=== PATIENT | female | born 1930 | race Caucasian/White ===

== ENCOUNTER → 2016-08-16 | Outpatient (CLI) | payer MEDICARE ==
[~2016-08-16] MED LIST: AMLODIPINE/VALSARTAN PO; AZOR5TAB4 PO; BUSP10TA PO; COUM1TAB17 PO; CRES5TAB PO; OMEG100011 PO; PEG1POW PO; PERCOCET PO; SENN1TAB2 PO; TRIA1CR TOP; TYLE500T78 PO; VICO5TAB16 PO; VITA100037 PO; VITA500T3 PO; WARF-18 PO
[2016-08-16 12:09] LABS: MEAN CORPUSCULAR HEMOGLOBIN 28.3 pg (27.0-33.0); MEAN CORPUSCULAR HGB CONC 32.8 g/dl (32.0-36.5); MEAN CORPUSCULAR VOLUME 86.3 fl (80.0-96.0); RED CELL DISTRIBUTION WIDTH 13.3 % (11.5-14.5); WHITE BLOOD COUNT 6.3 K/mm3 (4.0-10.0)
[2016-08-16 12:22] LABS: INR 1.04
[2016-08-16 12:32] LABS: ALBUMIN/GLOBULIN RATIO 1.43 (1.00-1.93); ALKALINE PHOSPHATASE 89 U/L (45-117); ALT/SGPT 19 U/L (12-78); ANION GAP 8 MEQ/L (8-16); AST/SGOT 16 U/L (15-37); BILIRUBIN,TOTAL 0.4 MG/DL (0.2-1.0); BLOOD UREA NITROGEN 19 MG/DL (7-18); CALCIUM LEVEL 9.1 MG/DL (8.8-10.2); CARBON DIOXIDE LEVEL 27 MEQ/L (21-32); CHLORIDE LEVEL 106 MEQ/L (98-107); CREATININE FOR GFR 0.78 MG/DL (0.55-1.02); GLOMERULAR FILTRATION RATE > 60.0 (>32); GLUCOSE, FASTING 88 MG/DL (83-110); SODIUM LEVEL 141 MEQ/L (136-145); TOTAL PROTEIN 6.8 GM/DL (6.4-8.2)
--- NOTE | 2016-08-16 16:54 | REP ---
CHEST, TWO VIEWS: Two views of the chest are performed and compared to prior study of 03/31/2016. I see no acute infiltrate. Lung richards are unchanged. There is mild cardiomegaly. The mediastinal silhouette is unchanged. There are degenerative changes of the spine. IMPRESSION: Stable exam, no acute pulmonary disease. Signed by David Humphrey MD 08/17/2016 05:10 P
--- NOTE | 2016-08-18 16:44 | ECGEPIP ---
Stationary ECG Study [facility] Test Date: 2016-08-16 Pat Name: MEREDITH OLIVARES Department: Room: - Gender: F Change Coordinator: : [id number] Requested By: Flaco Liu Order Number: [id number] Reading MD: Jose Aquino Measurements Intervals [place] Rate: 60 P: 69 ID: [id number] QRS: 46 QRSD: 103 T: 51 QT: 426 QTc: 429 Interpretive Statements SINUS RHYTHM NONSPECIFIC ST & T-WAVE ABNORMALITY NO CHANGE FROM 03/31/16 Electronically Signed On 08-18-2016 16:43:59 EST by Jose Aquino
== END ==
LOC: M ADMPAT 10:16
PROVIDERS: ATTEND Orthopaedic Surgery
DX: Z01.818 Encounter for other preprocedural examination (principal); M16.11 Unilateral primary osteoarthritis, right hip; Z79.899 Other long term (current) drug therapy; E78.00 Pure hypercholesterolemia, unspecified; I10 Essential (primary) hypertension

== ENCOUNTER 2016-08-30 05:54 | Inpatient (IN) | payer MEDICARE ==
[2016-08-16 11:24] VITALS: BP 180/88
--- NOTE | 2016-08-25 16:43 | HPE ---
DATE OF SCHEDULED ADMISSION: 08/30/2016 CHIEF COMPLAINT: Right hip pain. HISTORY OF PRESENT ILLNESS: This is a pleasant 86-year-old female with progressively worsening right hip pain and stiffness. She has failed to improve with conservative treatment. She has elected for surgery for her continued symptoms. She has pain with weightbearing activities and her activities of daily living. X-rays of her hip are notable for advanced osteoarthritis of the right hip joint. She has consented for a right total hip arthroplasty by Dr. Flaco Liu. Medical optimization was performed by Dr. Mock. ALLERGIES: No known drug allergies. CURRENT MEDICATIONS: - amlodipine/valsartan 5/160 mg a day - buspirone HCl 10 mg once a day - Crestor 5 mg Monday and Monday only - Vicodin 5/300 as needed - vitamin D 2000 units a day - vitamin B12 1000 mcg a day PAST MEDICAL HISTORY: Includes high blood pressure, high cholesterol and anxiety and depression. PAST SURGICAL HISTORY: Includes bunionectomy, left knee replacement, left hip replacement and tubal ligation. 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 FAMILY HISTORY: Noncontributory. REVIEW OF SYSTEMS: This patient denies chest pain, heart palpitations, cough, wheezing, difficulty breathing and shortness of breath. She denies abdominal pain, nausea, vomiting, diarrhea or constipation. She denies recent upper respiratory infection or urinary tract infection symptoms. She does complain of persistent pain in her right hip and pain with weightbearing activities in her right hip. PHYSICAL EXAMINATION: General: She is a well nourished, well developed, in no acute distress, adult female. She ambulates with a significant limp, favoring her right lower extremity. She uses a walker. Vital Signs: She is 4 feet 11, weighs 152 pounds with a temperature of 98.3, blood pressure 141/73, pulse of 69, respirations of 16. Neck was supple without adenopathy or jugular venous distension. There were no carotid bruits appreciated upon auscultation. Lungs were clear to auscultation without rales or wheeze throughout. Heart: Regular rate and rhythm. Abdomen: Bowel sounds were present. Extremities: Examination of the hip revealed intact skin. She had decreased range of motion secondary to pain and stiffness. Otherwise the limb was neurovascularly intact. LABORATORY DATA: Chest x-ray Showed no acute cardiopulmonary disease processes. EKG showed sinus rhythm at 60 beats per minute. UA had a hazy appearance, 1+ leukocyte esterase, 25 white blood cells, 4 red blood cells and 1+ bacteria, otherwise within normal limits with a specific gravity of 1.013. Urine culture showed no growth. Nasal and sinus culture showed normal rian. Pro-time 13.7, INR 1.04, glucose 88, BUN 19, creatinine 0.78. Sodium 141, potassium 4.0. CBC was within normal limits. Sedimentation rate was 6. IMPRESSION: Symptomatic osteoarthritis of the right hip joint. PLAN: Consented for a right total hip arthroplasty by Dr. Flaco Liu.
[2016-08-30] VITALS (7 sets, daily range): BP systolic 120–143; BP diastolic 58–73
[~2016-08-30] VITALS: Ht 157.5 cm; Wt 69.8 kg
[2016-08-30] MEDS: LR 1,000 ML IV SCH ×2 (06:00→06:44)
[2016-08-30] MEDS ORDERED: COUM1TAB17 PO (06:48)
[2016-08-30] MEDS ORDERED: BUPIVACAINE HCL 0.5% 10 ML VIAL As Ordered ONE (07:10)
[2016-08-30] MEDS ORDERED: BUPIVACAINE HCL 0.25% 30 ML VIAL As Ordered ONE (07:10)
[2016-08-30] MEDS ORDERED: TRANEXAMIC ACID 100 MG/ML 10ML VIAL As Ordered ONE (07:10)
[2016-08-30] MEDS ORDERED: ceFAZolin 1GM INJ (J0690) As Ordered ONE (07:10)
[2016-08-30] MEDS ORDERED: EPINEPHrine INJ 1 MG/ML 1ML VIAL/AMP As Ordered ONE ×2 (07:10→07:40)
[2016-08-30] MEDS ORDERED: BUPIVACAINE HCL 0.25% 10 ML VIAL As Ordered ONE (07:40)
[2016-08-30] MEDS ORDERED: fentaNYL 100 MCG/2 ML INJECTION (J3010) As Ordered ONE ×2 (07:43→10:27)
[2016-08-30] MEDS ORDERED: BUPIVACAINE HCL 0.25% 30 ML VIAL XX ONE (08:13)
[2016-08-30] MEDS ORDERED: fentaNYL 100 MCG/2 ML INJECTION (J3010) XX ONE (08:13)
[2016-08-30] MEDS ORDERED: TRANEXAMIC ACID 100 MG/ML 10ML VIAL XX ONE (08:13)
[2016-08-30] MEDS ORDERED: EPINEPHrine INJ 1 MG/ML 1ML VIAL/AMP XX ONE (08:13)
[2016-08-30] MEDS ORDERED: ceFAZolin 1GM INJ (J0690) IR ONE (08:13)
[2016-08-30] MEDS ORDERED: ONDANSETRON 4MG/2ML VIAL (J2405) IV PRN ×2 (09:45)
[2016-08-30] MEDS ORDERED: LR 1,000 ML IV SCH (09:45)
[2016-08-30] MEDS ORDERED: EPIDURAL/PCA KEYS XX PRN (09:45)
[2016-08-30] MEDS ORDERED: MORPHINE PCA 1MG/ML 100ML CADD IV PRN (09:45)
[2016-08-30] MEDS ORDERED: diphenhydrAMINE INJ 50MG/ML VIAL (J1200) IV PRN (09:45)
[2016-08-30] MEDS ORDERED: NALBUPHINE HCL 10 MG/ML AMP (J2300) IV PRN (09:45)
[2016-08-30] MEDS ORDERED: NALOXONE INJ 0.4 MG/1 ML VIAL (J2310) IV PRN (09:45)
--- NOTE | 2016-08-30 09:51 | RO ---
DATE OF PROCEDURE: 08/30/2016 PREOPERATIVE DIAGNOSIS: Right hip osteoarthritis. POSTOPERATIVE DIAGNOSIS: Right hip osteoarthritis. OPERATION PERFORMED: Right total hip replacement. SURGEON: Dr. Flaco Liu. BULKHEAD CARPENTER: ILTA Salmeron. HISTORY: An 86-year-old who had her other hip done last summer. She had good relief of pain and tolerated surgery well. She wanted go ahead and get the right hip done. FINDINGS AT SURGERY: Marked synovitis in the hip. Significant osteoarthritis. We put in a 56 cup, a 36 head neck combination +5, cemented [place] stem. Blood loss around 150 mL. There were no intraoperative complications. At the conclusion, we had good range of motion, good stability. Mr. Montemayor assisted by manipulating the leg and retracting vital structures to expedite the procedure. PROCEDURE: After a spinal anesthetic, a Medina catheter placed, IV antibiotics were administered and the patient turned right side up in the [place]. She was padded and positioned appropriately then prepped and draped. The leg identified as was the procedure. Then an anterolateral approach to the hip. Tensor was split in line with its fibers. The abductors reflected anteriorly. Marked synovitis was encountered. The hip was dislocated. We reamed the distal canal to [place] #7. The neck was divided and the acetabulum was exposed. I could not see the cotyloid fossa as she was significantly lateralized. I started reaming with a 43 and went up to a 55. At that point, we had fairly good bleeding bone. We had good circumferential lamp cleaner of the greater reamers. The bleeders were coagulated. The area thoroughly irrigated and the permanent cup malleted into place. The apex hole eliminator installed and the polyethylene installed. Then broaches were utilized up to a #5. A reduction maneuver was accomplished with a +5 36. Some anterior bone from the acetabulum anterior superior was removed with a [place]ell so there would not be any impingement. The area was thoroughly inspected to make sure no other bleeders were encountered. Following this, the stem was removed. The broaches discontinued. The distal cement restrictor was measured for a #5 and it was installed. The femur was thoroughly irrigated and then packed with a epinephrine soaked lap pad while Mr. Montemayor was excused to the back table to mix methacrylate under vacuum. Following this, the epinephrine soaked sponge was removed from the femur and cement was injected retrograde and pressurized. After another minute, the stem was slowly inserted until it bottomed out. Excess cement was removed. The stem was held for 11 minutes until the cement cured. The Saenz taper was then engaged and the hip reduced without difficulty. The wound was thoroughly irrigated. The capsule closed. TXA was instilled on the wound for postop hemostasis. The abductors were repaired back to the trochanter with several stitches going through bone for secure fixation. The PainBuster catheter had been threaded in under the tensor. The tensor closed with heavy PDS, subcutaneous closed with #2-0 PDS and antony for skin. 10 mL for the PainBuster to prime it and that was connected, a dry dressing applied. The patient transferred to recovery room breathing spontaneously having tolerated the procedure well.
[2016-08-30] MEDS ORDERED: MORPHINE PCA 1MG/ML 100ML CADD As Ordered ONE (09:54)
[2016-08-30] MEDS ORDERED: FLEET ENEMA PR PRN (10:00)
[2016-08-30] MEDS ORDERED: PATIENT IS CURRENTLY ON AN ON-Q PAIN BUSTER PAIN RELIEF SYSTEM XX SCH (10:00)
[2016-08-30] MEDS: fentaNYL 100 MCG/2 ML INJECTION (J3010) IV PRN ×4 (10:14→10:29)
[2016-08-30] MEDS: D5W/0.45% SODIUM CHLORIDE 1,000 ML IV SCH ×2 (10:22→21:43)
[2016-08-30] MEDS ORDERED: PROPOFOL 200 MG/20 ML VIAL As Ordered ONE (10:28)
[2016-08-30] MEDS ORDERED: LIDOCAINE 2% INJ 100 MG/5 ML SDV (FOR ANES.) As Ordered ONE (10:28)
[2016-08-30] MEDS ORDERED: PHENYLEPHRINE INJ 10MG/ML VIAL (J2370) As Ordered ONE (10:28)
[2016-08-30] MEDS ORDERED: PHENYLephrine HCL 500 MCG/5 ML (100MCG/ML) SYRINGE (J2370) As Ordered ONE (10:28)
[2016-08-30] MEDS ORDERED: ONDANSETRON 4MG/2ML VIAL (J2405) As Ordered ONE (10:28)
[2016-08-30] MEDS ORDERED: ePHEDrine SULFATE 25 MG/5 ML(5MG/ML) SYRINGE As Ordered ONE (10:28)
[2016-08-30] MEDS ORDERED: MORPHINE 10 MG/ML 1ML VIAL As Ordered ONE (10:50)
[2016-08-30] MEDS ORDERED: MORPHINE 2 MG/ML 1ML SYRINGE IV PRN (11:15)
[2016-08-30] MEDS ORDERED: HYDROcodone/APAP LIQUID 7.5-325MG 15ML UDC (LORTAB ELIXIR) As Ordered ONE (11:27)
[2016-08-30] MEDS: NORCO, ANEXSIA 5/325MG TABLET (HYDROcodone/ACETAMINOPHEN) PO PRN ×2 (11:30→11:50)
[2016-08-30] MEDS: ceFAZolin SOD 1 GM in D5W MINI-BAG PLUS 50 ML IV SCH ×2 (14:35→21:42)
[2016-08-30 14:48] LABS: BASO % 0.2 % (0.0-1.0); EOS % 0.4 % (0.0-3.0); LARGE UNSTAINED CELL # 0.1 K/mm3 (0.0-0.4); LYMPH # 0.7 K/mm3 (1.5-4.5); LYMPH % 6.3 % (24.0-44.0); MEAN CORPUSCULAR HEMOGLOBIN 28.6 pg (27.0-33.0); MEAN CORPUSCULAR HGB CONC 33.3 g/dl (32.0-36.5); MONO # 0.5 K/mm3 (0.0-0.8); MONO % 4.4 % (0.0-5.0); NEUTROPHILS # 9.8 K/mm3 (1.8-7.7); NEUTROPHILS % 87.6 % (36.0-66.0); PLATELET COUNT, AUTOMATED 205 k/mm3 (150-450); RED CELL DISTRIBUTION WIDTH 13.2 % (11.5-14.5); WHITE BLOOD COUNT 11.2 K/mm3 (4.0-10.0)
[2016-08-30 15:04] LABS: ALBUMIN 3.5 GM/DL (3.2-5.2); ALBUMIN/GLOBULIN RATIO 1.67 (1.00-1.93); ALKALINE PHOSPHATASE 74 U/L (45-117); ALT/SGPT 16 U/L (12-78); ANION GAP 9 MEQ/L (8-16); AST/SGOT 17 U/L (15-37); BILIRUBIN,TOTAL 0.4 MG/DL (0.2-1.0); BLOOD UREA NITROGEN 15 MG/DL (7-18); CALCIUM LEVEL 8.2 MG/DL (8.8-10.2); CARBON DIOXIDE LEVEL 28 MEQ/L (21-32); CHLORIDE LEVEL 105 MEQ/L (98-107); CREATININE FOR GFR 0.66 MG/DL (0.55-1.02); GLOMERULAR FILTRATION RATE > 60.0 (>32); GLUCOSE, FASTING 142 MG/DL (83-110); SODIUM LEVEL 142 MEQ/L (136-145); TOTAL PROTEIN 5.6 GM/DL (6.4-8.2)
--- NOTE | 2016-08-30 15:32 | CR.PDOC ---
[facility] Consultation Consultation DATE OF CONSULTATION: 08/30/16 - 200PM PRIMARY CARE PHYSICIAN: [Dr. Mock] REFERRING PROVIDER: [Dr. Liu] ATTENDING PHYSICIAN: [Dr. Liu] REASON FOR CONSULTATION/CHIEF COMPLAINT: [Medical management] HISTORY OF PRESENT ILLNESS: Patient is an 86 year old female with a PMHx of HTN, DLP, depression, anxiety and osteoarthritis who [facility] for scheduled right hip arthroplasty. Patient was seen by her primary car physician for continuous pain. Imaging revealed that she had advanced osteoarthritis and was unable to be controlled by medical management. She was medically optimized and scheduled for total right hip replacement. She was taken to [facility] on 08/30/16 and had a total right hip replacement. She had no other complaints. ALLERGIES: [NKDA] HOME MEDICATIONS: Please see below. PAST MEDICAL HISTORY: 1. HTN 2. DLP 3. Depression 4. Anxiety 5. Osteoarthritis PAST SURGICAL HISTORY: 1. Bilateral bunionectomy 2. Left knee replacement - 2009 3. Left hip replacement - 2015 4. Tubal ligation ... >30 years ago FAMILY HISTORY: Non-contributory SOCIAL HISTORY: Ry smoking or illicit drug use; Social drinker in the past No recent travel or sick contacts courtesy car driver for 27 years REVIEW OF SYSTEMS: 12 point review of system negative - otherwise stated in HPI PHYSICAL EXAMINATION: VITAL SIGNS: Please see below. GENERAL APPEARANCE: Lying in bed, no acute distress, comfortable, AAOx3 HEENT: NC, AT RESPIRATORY: Fair air entry b/l, -w/r/r CARDIOVASCULAR: RRR, +S1S2 ABDOMEN: Soft, ND, NT, +BSx4 EXTREMITIES: No edema, no calf tenderness NEUROLOGICAL: No focal weakness, No sensory deficit PSYCHIATRIC: AAOx3, No suicidal / homicidal ideation LABORATORY DATA: Please see below. ASSESSMENT/PLAN: 1. Right hip pain - s/p Total right hip replacement (POD #0) - no complications reported - pain control by surgical team - Managed by surgical team (Dr. Liu) 2. HTN - BP well controlled - Will restart home medications with holding parameters 3. DLP - will restart Crestor 4. Depression / Anxiety - c/w Buspirone 5. DVT prophylaxis - on anticoagulation by surgical team Vital Signs/I&O Vital Signs Date Time Temp Pulse Resp B/P Pulse Ox O2 Delivery O2 Flow Rate FiO2 08/30/16 12:30 Nasal Cannula 2.0 08/30/16 12:13 74 16 98 08/30/16 12:11 117/58 08/30/16 11:50 96.8 Laboratory Data Labs 24H Laboratory Tests 2 08/30/16 14:28: Blood Urea Nitrogen 15, Creatinine 0.66, Sodium Level 142, Potassium Level 4.0, Chloride Level 105, Carbon Dioxide Level 28, Calcium Level 8.2L, Aspartate Amino Transf (AST/SGOT) 17, Alanine Aminotransferase (ALT/SGPT) 16, Alkaline Phosphatase 74, Total Bilirubin 0.4, Total Protein 5.6L, Albumin 3.5, Albumin/ Globulin Ratio 1.67, Anion Gap 9, Glomerular Filtration Rate > 60.0, Magnesium Level 2.0 CBC/BMP Laboratory Tests 08/30/16 14:28 Calcium Level 8.2 L, Aspartate Amino Transf (AST/SGOT) 17, Alanine Aminotransferase (ALT/SGPT) 16, Alkaline Phosphatase 74, Total Bilirubin 0.4, Total Protein 5.6 L, Albumin 3.5 Allergies Coded Allergies: Codeine (Unverified Allergy, Unknown, HALLUCINATIONS, 01/01/15) Home Medications Scheduled ([Amlodipine/Valsartan]) 5-160 MG PO DAILY (Reported) Buspirone HCl (Buspirone HCl) 10 Mg Tab 10 MG PO DAILY (Reported) Cyanocobalamin (Vitamin B-12) 500 Mcg Tab 1,000 MCG PO DAILY (Reported) Rosuvastatin Calcium (Crestor) 5 Mg Tab 5 MG PO 2XW (Reported) TO BE TAKEN ON MONDAY AND MONDAY Vitamin D (Vitamin D) 1,000 Unit Cap 2,000 UNIT PO DAILY (Reported) Warfarin Sod (Coumadin) 5 Mg Tab 5 MG PO 1T (Reported) BETY JHA MD Aug 30, 2016 15:32
[2016-08-30] MEDS ORDERED: WARFARIN SOD 5 MG TAB PO ONE (17:00)
[2016-08-30] MEDS: VALSARTAN 80 MG TAB (DIOVAN) PO SCH (17:11)
[2016-08-30] MEDS: CYANOCOBALAMIN 500 MCG TAB PO SCH (17:11)
[2016-08-30] MEDS: busPIRone 10 MG TAB PO SCH (17:11)
[2016-08-30] MEDS: amLODIPine 5 MG TAB PO SCH (17:12)
[2016-08-30] MEDS: VITAMIN D 1,000 INTERNATIONAL UNITS TABLET PO SCH (17:12)
[2016-08-30 20:49] LABS: MEAN CORPUSCULAR HEMOGLOBIN 28.4 pg (27.0-33.0); MEAN CORPUSCULAR VOLUME 88.5 fl (80.0-96.0); RED CELL DISTRIBUTION WIDTH 14.3 % (11.5-14.5); WHITE BLOOD COUNT 8.7 K/mm3 (4.0-10.0)
[2016-08-30 21:19] LABS: CALCIUM LEVEL 8.1 MG/DL (8.8-10.2); CREATININE FOR GFR 0.96 MG/DL (0.55-1.02); GLOMERULAR FILTRATION RATE 58.4 (>32); POTASSIUM SERUM 4.5 MEQ/L (3.5-5.1)
[2016-08-31 02:00] VITALS: BP 139/70
[2016-08-31 02:12] LABS: MEAN CORPUSCULAR HEMOGLOBIN 27.4 pg (27.0-33.0); MEAN CORPUSCULAR HGB CONC 31.1 g/dl (32.0-36.5); MEAN CORPUSCULAR VOLUME 88.1 fl (80.0-96.0); RED CELL DISTRIBUTION WIDTH 14.1 % (11.5-14.5); WHITE BLOOD COUNT 8.9 K/mm3 (4.0-10.0)
[2016-08-31 02:30] LABS: ANION GAP 8 MEQ/L (8-16); BLOOD UREA NITROGEN 15 MG/DL (7-18); CALCIUM LEVEL 8.1 MG/DL (8.8-10.2); CARBON DIOXIDE LEVEL 27 MEQ/L (21-32); CHLORIDE LEVEL 101 MEQ/L (98-107); CREATININE FOR GFR 0.83 MG/DL (0.55-1.02); GLOMERULAR FILTRATION RATE > 60.0 (>32); GLUCOSE, FASTING 139 MG/DL (83-110); SODIUM LEVEL 136 MEQ/L (136-145)
[2016-08-31 06:00] VITALS: BP 180/80
[2016-08-31] MEDS ORDERED: traMADol 50 MG TAB PO PRN ×2 (06:45)
[2016-08-31] MEDS ORDERED: ONDANSETRON 4 MG TAB (S0181) PO PRN (06:45)
[2016-08-31 07:06] LABS: MEAN CORPUSCULAR HEMOGLOBIN 28.1 pg (27.0-33.0); MEAN CORPUSCULAR HGB CONC 32.4 g/dl (32.0-36.5); MEAN CORPUSCULAR VOLUME 86.8 fl (80.0-96.0); WHITE BLOOD COUNT 9.5 K/mm3 (4.0-10.0)
[2016-08-31 07:15] LABS: INR 1.86
[2016-08-31 07:45] LABS: ANION GAP 10 MEQ/L (8-16); BLOOD UREA NITROGEN 13 MG/DL (7-18); CALCIUM LEVEL 8.4 MG/DL (8.8-10.2); CARBON DIOXIDE LEVEL 27 MEQ/L (21-32); CHLORIDE LEVEL 101 MEQ/L (98-107); CREATININE FOR GFR 0.73 MG/DL (0.55-1.02); GLOMERULAR FILTRATION RATE > 60.0 (>32); GLUCOSE, FASTING 142 MG/DL (83-110); POTASSIUM SERUM 4.2 MEQ/L (3.5-5.1); SODIUM LEVEL 138 MEQ/L (136-145)
[2016-08-31] MEDS ORDERED: SENOKOT S TAB PO SCH (09:00)
[2016-08-31] MEDS ORDERED: MOM 30ML SUSPENSION UDC PO SCH (09:00)
[2016-08-31] MEDS ORDERED: MIRALAX *UNIT DOSE* 17GM PACKET PO SCH (09:00)
[2016-08-31] MEDS: busPIRone 10 MG TAB PO SCH (09:07)
[2016-08-31 09:08] VITALS: BP 180/80
[2016-08-31] MEDS: ACETAMINOPHEN TAB 650MG DOSE (2X325MG) PO PRN ×2 (09:08→12:52)
[2016-08-31] MEDS: VITAMIN D 1,000 INTERNATIONAL UNITS TABLET PO SCH (09:08)
[2016-08-31] MEDS: CYANOCOBALAMIN 500 MCG TAB PO SCH (09:08)
[2016-08-31] MEDS: VALSARTAN 80 MG TAB (DIOVAN) PO SCH (09:08)
[2016-08-31] MEDS: amLODIPine 5 MG TAB PO SCH (09:08)
--- NOTE | 2016-08-31 10:22 | IPNPDOC ---
Text Note Date of Service The patient was seen on 08/31/16 at 10:16. NOTE Subjective: Patient is an 86 year old female with a PMHx of HTN, DLP, depression, anxiety and osteoarthritis who presented to [facility] for scheduled right hip arthroplasty. She had received her elective total right hip replacemetn 08/30/[address] Liu. Patient has been seen and examined at the bedside. Has no new complaints today. She has not passed gas or had a bowel movement at this time. She is tolerating her meal and denies abdominal pain, nausea or vomiting. Objective: Vitals (See below) General: Lying in bed, no acute distress, comfortable, AAOx3 HEENT: NC, AT CVS: RRR, +S1S2 Lungs: Fair air entry b/l, -w/r/r Abdomen: Soft, ND, NT, +BSx4 Extremities: -Edema, -calf tenderness Assessment and plan: 1. Right hip pain - s/p Total right hip replacement (POD #1) - minimal pain noted at the right hip - no complications reported - pain control by surgical team - physical therapy for evaluation; outpatient rehabilitation setup - case management working on it - Managed by surgical team (Dr. Liu) 2. HTN - BP poorly controlled this morning - will re-evaluate after starting am medications - c/w amlodipine and losartan with holding parameters 3. Normocytic anemia - Hg slightly lower than baseline - will monitor for now 4. Hyperglycemia - Will check HbA1c 5. s/p Leukocytosis - likely reactive 6. DLP - c/w Crestor 7. Depression / Anxiety - c/w Buspirone 8. DVT prophylaxis - on anticoagulation by surgical team VSTricia, I+O VS, Tricia, I+O Laboratory Tests 08/30/16 14:28 Calcium Level 8.2 L, Aspartate Amino Transf (AST/SGOT) 17, Alanine Aminotransferase (ALT/SGPT) 16, Alkaline Phosphatase 74, Total Bilirubin 0.4, Total Protein 5.6 L, Albumin 3.5, Red Blood Count 4.00, Mean Corpuscular Volume 86.0, Mean Corpuscular Hemoglobin 28.6, Mean Corpuscular Hemoglobin Concent 33.3 , Red Cell Distribution Width 13.2, Neutrophils (%) (Auto) 87.6 H, Lymphocytes ( %) (Auto) 6.3 L, Monocytes (%) (Auto) 4.4, Eosinophils (%) (Auto) 0.4, Basophils (%) (Auto) 0.2, Neutrophils # (Auto) 9.8 H, Lymphocytes # (Auto) 0.7 L , Monocytes # (Auto) 0.5, Eosinophils # (Auto) 0.0, Basophils # (Auto) 0.0 08/30/16 20:28 Calcium Level 8.1 L, Red Blood Count 3.70 L, Mean Corpuscular Volume 88.5, Mean Corpuscular Hemoglobin 28.4, Mean Corpuscular Hemoglobin Concent 32.0, Red Cell Distribution Width 14.3 08/31/16 02:03 Calcium Level 8.1 L, Red Blood Count 3.93 L, Mean Corpuscular Volume 88.1, Mean Corpuscular Hemoglobin 27.4, Mean Corpuscular Hemoglobin Concent 31.1 L, Red Cell Distribution Width 14.1 08/31/16 06:55 Calcium Level 8.4 L, Red Blood Count 3.91 L, Mean Corpuscular Volume 86.8, Mean Corpuscular Hemoglobin 28.1, Mean Corpuscular Hemoglobin Concent 32.4, Red Cell Distribution Width 14.0 Vital Signs Date Time Temp Pulse Resp B/P Pulse Ox O2 Delivery O2 Flow Rate FiO2 08/31/16 09:08 180/80 08/31/16 09:08 91 08/31/16 06:00 98.8 16 97 Nasal Cannula 2.0 I&O- Last 24 Hours up to 6 AM 08/31/16 05:59 Intake Total 4646 ml Output Total 1375 ml Balance 3271 ml BETY JHA MD Aug 31, 2016 10:22
--- NOTE | 2016-08-31 10:53 | REP ---
RIGHT HIP, FOUR VIEWS: HISTORY: Hip replacement. The patient is status post right hip arthroplasty. There is no acute fracture or dislocation. Drainage tubing and surgical antony are present in the overlying soft tissue. IMPRESSION: The patient is status post right hip arthroplasty. There is anatomic alignment. Signed by Min Kennedy MD 08/31/2016 11:02 A
[2016-08-31] MEDS ORDERED: TRAM50TA2 PO (14:23)
[2016-08-31 14:35] LABS: MEAN CORPUSCULAR HEMOGLOBIN 28.3 pg (27.0-33.0); MEAN CORPUSCULAR HGB CONC 33.1 g/dl (32.0-36.5); MEAN CORPUSCULAR VOLUME 85.3 fl (80.0-96.0); RED CELL DISTRIBUTION WIDTH 14.2 % (11.5-14.5); WHITE BLOOD COUNT 12.8 K/mm3 (4.0-10.0)
[2016-08-31 14:45] LABS: ANION GAP 8 MEQ/L (8-16); BLOOD UREA NITROGEN 12 MG/DL (7-18); CALCIUM LEVEL 8.8 MG/DL (8.8-10.2); CARBON DIOXIDE LEVEL 30 MEQ/L (21-32); CHLORIDE LEVEL 100 MEQ/L (98-107); CREATININE FOR GFR 0.79 MG/DL (0.55-1.02); GLOMERULAR FILTRATION RATE > 60.0 (>32); GLUCOSE, FASTING 184 MG/DL (83-110); POTASSIUM SERUM 4.4 MEQ/L (3.5-5.1); SODIUM LEVEL 138 MEQ/L (136-145)
[2016-08-31] MEDS ORDERED: WARFARIN SOD 5 MG TAB PO ONE (17:00)
[2016-09-02] MEDS ORDERED: ROSUVASTATIN 10 MG TAB (CRESTOR) PO SCH (09:00)
--- NOTE | 2016-09-02 12:23 | DSES ---
DATE OF ADMISSION: 08/30/2016 DATE OF DISCHARGE: 08/31/2016 ADMITTING DIAGNOSIS: Symptomatic osteoarthritis of the right hip. DISCHARGE DIAGNOSIS: Status post right total hip arthroplasty. HISTORY OF PRESENT ILLNESS: Patient is a pleasant female with continuing right hip pain and stiffness. Symptoms not improved with conservative management. She has consented for a right total hip arthroplasty with Dr. Liu. She was admitted on the day of surgery for this elective procedure. OTHER DIAGNOSES: 1. Hypertension. 2. Hyperlipidemia. 3. Osteoarthritis. 4. Anxiety. OPERATION PERFORMED: Right total hip arthroplasty. HOSPITAL COURSE: Patient uneventfully underwent a right total hip arthroplasty on 08/30/2016 under spinal anesthesia. During her hospital stay she developed anemia, uncontrolled hypertension, constipation, and confusion/hallucinations. On 08/31/2016, she was admitted by the hospitalist for rehabilitation in the [facility]. Her medical condition required specialized care from a physical medicine and rehabilitation physician. In regards to her right total hip arthroplasty, patient will be weightbearing as tolerated with the use of a walker. She will use Coumadin and thromboembolic deterrent (YOUSUF) stockings for 30 days for deep venous thrombosis prophylaxis. She will follow up for a dressing change in approximately seven days. She will report in 12 to 14 days in our office for a wound check and staple removal. Patient is encouraged to contact our office sooner if there is any increased pain, drainage, bleeding, redness, numbness, or tingling in her extremity, a fever greater than 101 degrees, or any other concerns. Please see the medical record for further details. FANTA
== END 2016-08-31 14:39 | DRG 470 ==
LOC: M OR 05:54 → M MS5PR 12:40
PROVIDERS: ADMIT Orthopaedic Surgery; ATTEND Orthopaedic Surgery
PROC: 0SR9029 Replacement of Right Hip Joint with Metal on Polyethylene Synthetic Substitute, Cemented, Open Approach (ICD-10-PCS; principal; 2016-08-30 07:30)
DX: M16.11 Unilateral primary osteoarthritis, right hip (principal); I10 Essential (primary) hypertension; F41.8 Other specified anxiety disorders; E78.5 Hyperlipidemia, unspecified; Z96.652 Presence of left artificial knee joint; Z96.642 Presence of left artificial hip joint; Z98.51 Tubal ligation status; Z79.899 Other long term (current) drug therapy; Z88.5 Allergy status to narcotic agent

== ENCOUNTER 2016-08-31 14:42 | Inpatient (IN) | payer MEDICARE ==
[~2016-08-31] VITALS: Ht 157.5 cm; Wt 71.0 kg
[~2016-08-31 14:42] MED LIST changes: +TRAM50TA2 PO
[2016-08-31] MEDS ORDERED: MOM 30ML SUSPENSION UDC PO PRN (15:00)
[2016-08-31] MEDS ORDERED: MIRALAX *UNIT DOSE* 17GM PACKET PO PRN (15:00)
[2016-08-31 15:17] VITALS: BP 130/69
--- NOTE | 2016-08-31 15:18 | HPEPDOC ---
Agency Sales Director Note ADMISSION [facility] and [facility] DATE OF SERVICE: 08/31/2016 DATE OF ADMISSION: 08/31/2016 IDENTIFICATION STATEMENT: Ms. Licea is an 86-year-old woman status post right total hip arthroplasty admitted for comprehensive integrated inpatient rehabilitation. There have been no significant changes in the patient's condition since the preadmission screening. HISTORY OF PRESENT ILLNESS: Ms. Licea is an 86-year-old woman with a history of hypertension, hypercholesteremia and left total hip arthroplasty April 2016 s/p acute rehabilitation with good outcome who was experiencing progressive and debilitating pain in the right hip and lower limb for the Symptoms interfered with the patient's ability function and were refractory to conservative treatment. On 08/30/2016 the patient was admitted to the hospital and underwent a right total hip arthroplasty. Postoperative course is notable for anemia, uncontrolled hypertension, constipation and confusion/ hallucinations. Mental status has improved but there is still some residual confusion. Due to decline in the patient's baseline functional status and need for continued medical care, the recommendation was for rehabilitation. On 09/10 the patient was deemed stable for discharge to [facility]. PAST MEDICAL HISTORY: 1. Hypertension. 2. Hyperlipidemia. 3. Osteoarthritis. 4. Anxiety. PAST SURGICAL HISTORY: 1. Left total knee arthroplasty 2009. 2. Bunionectomy b/l. 3. Tubal ligation, due to being Rh positive/miscarriages. 4. Left IVIS March 2016 ALLERGIES: CODEINE. MEDICATIONS ON ADMISSION: - Coumadin dosed daily - BuSpar 10 mg by mouth daily - Norvasc 5 mg daily - cyanocobalamin 1000 mcg daily - vitamin D 2000 units daily - Senokot-S one tablet twice a day - valsartan 160 mg daily - Crestor 5 mg Monday and Monday - milk of magnesium 30 mL daily - polyethylene glycol one packet daily - acetaminophen 650 mg every four hours as needed - tramadol 50-100mg q4-6h prn - Zofran 4 mg IV every six hours as needed SOCIAL HISTORY: The patient lives in a two-story home, but there is a first floor setup. There are two steps to enter the house. She is a retired middle school special education teacher. She denies smoking, past or present. Her last alcoholic drink was a beer during the of 1976. She denies any illicit drug use, past or present. REVIEW OF SYSTEMS: GENERAL: The patient reports feeling tired, but denies any chills or recent weight changes. EYES: The patient denies any change in her vision. EARS, NOSE, AND THROAT: The patient denies any sore throat, decreased hearing, or nasal discharge. CARDIOVASCULAR: The patient denies any chest pain, claudication, or syncopal episodes. PULMONARY: The patient denies any productive cough, shortness of breath or orthopnea. GASTROINTESTINAL: The patient does report vomiting this morning with associated nausea. She has not yet moved her bowels. She denies any abdominal pain. GENITOURINARY: The patient denies any dysuria. GYNECOLOGICAL: The patient denies any vaginal bleeding, she is postmenopausal. MUSCULOSKELETAL: Aside from the patient's right hip and lower limb pain, she denies any other chronic neck, back or joint pain. She denies any muscle pain. NEUROLOGICAL: The patient denies any numbness, paresthesias, progressive weakness, recent falls, or headaches. HEMATOLOGICAL: The patient denies any bleeding disorders or easy bruising. SKIN: The patient does report a chronic right leg psoriatic plaque, for which she uses a topical cream. She states it, "comes and goes." PSYCHIATRIC: The patient had occasional anxiety attacks after her . She occasionally uses the BuSpar. She does NOT take it on a regular basis. VITAL SIGNS: 98.8F, pulse 91, respiratory rate 16, blood pressure 180/80, 97% saturation on room air. PHYSICAL EXAMINATION: GENERAL: Well-developed, well-nourished, sitting up in bed, in no acute distress. HEENT: Normocephalic, atraumatic. No facial droop. Pupils are equal, round, and reactive to light. Extraocular motion intact. CARDIOVASCULAR: S1, S2, regular rate. No significant left lower limb edema or calf tenderness. Mild diffuse right lower limb swelling and no calf tenderness per se. LUNGS: Clear to auscultation. No wheezing, rhonchi, or rales. ABDOMEN: Soft, nontender, nondistended. No rebound. Normoactive bowel sounds throughout. MUSCULOSKELETAL: 5/5 strength in bilateral upper limbs and left lower limb in all major muscle groups, 2/5 right hip flexors, 4/5 right knee extension and flexion, 5/5 right dorsiflexion, plantar flexion and extensor hallucis longus ( EHL). Deep tendon reflexes 1+ biceps bilaterally, unable to elicit patellar bilaterally. Sensation: Intact to soft touch bilateral upper and lower limbs. NEUROLOGICAL: Alert and oriented times three. Answers all questions appropriately. States she was seeing men in the hallway with hammers last night , but they are gone now. Able to follow commands without difficulty. SKIN: +Pain buster in right lateral thigh, Right lateral hip surgical site covered with abd pad LABORATORY DATA: 08/31/2016: WBC count 12.8, hemoglobin 11.0, hematocrit 33.3, platelets 180. Sodium 138, potassium 4.2, chloride 101, carbon dioxide 27, BUN 13, creatinine 0.73, GFR greater than 60, glucose 142, hemoglobin A1c 5.7, calcium 8.4, magnesium 1.8 OTHER STUDIES: X-ray of the right hip on 08/31/16, status post right arthroplasty in good position. FUNCTIONAL STATUS: PREMORBID: The patient reports being modified independent with ambulation using a front wheeled walker. She was independent with activities of daily living (ADLs). ON ADMISSION: 3 feet with min A & RW, Min A T and bed mobility. ASSESSMENT AND PLAN: 1. Advanced right hip degenerative joint disease status post left hip arthroplasty now with gait abnormality and dysfunctional activities of daily living (ADLs): Weightbearing as tolerated. Hip abduction pillow. Hip precautions. She will undergo thorough physical and occupational therapy evaluations followed by daily intensive therapy. Rehabilitation nursing for bladder, bowel, and medication management. 2. Confusion/hallucinations: Patients hallucinations seemed to have resolved. She does have some evidence of mild confusion on evaluation today related to sequencing of events. Likely this is related to her anesthesia and/or pain medication. Will hold on any opiate analgesics at this time. Will change buspar to prn (i.e. the way she was using it prior to admission). She still has the pain buster in the right hip. This is scheduled to be discontinued tomorrow. Will provide patient with scheduled Tylenol only today. Will consider restarting tramadol after pain buster discontinued pending patients mental status. 3. Anemia, acute blood loss: She has had 3 CBCs today; therefore, we will not repeat CBC in the morning. Will repeat CBC on Monday. 4. Hypertension: Patient noted to be hypertensive with a systolic blood pressure 180, although this was premedication. Will obtain repeat vital signs. Adjustments as indicated. 5. Constipation: Will place patient on bowel regimen to include Senokot-S twice a day, MiraLax daily and milk of magnesia as needed. Further recommendations pending response to above regimen. 6. Venous thromboembolism (VTE) prophylaxis: The patient is on Coumadin which is dosed by LEIDY Brown of the orthopedic service. Will also provide sequential compression device (SCD) and thromboembolic-deterrent (YOUSUF) hose. 7. Diet/nutrition: Will obtain a prealbumin with morning laboratories. Will maintain the patient on a low-cholesterol diet. Nutritional supplements as indicated. POSTADMISSION PHYSICIAN EVALUATION: On evaluation of the patient today, there have been no significant functional changes or medical issues as compared to those noted in the preadmission screening document. This patient's inpatient rehabilitation remains necessary in light of the above conditions. Her medical condition requires the specialized care of a physician specially trained in physical medicine and rehabilitation. She is capable and motivated to participate in three hours of therapy daily, five days minimum per week, and requires intensive inpatient rehabilitation to improve her functional status so that she may be safely discharged back to her home. PROGNOSIS: Good ELOS: 10 days Home Medications Scheduled ([Amlodipine/Valsartan]) 5-160 MG PO DAILY (Reported) Buspirone HCl (Buspirone HCl) 10 Mg Tab 10 MG PO DAILY (Reported) Cyanocobalamin (Vitamin B-12) 500 Mcg Tab 1,000 MCG PO DAILY (Reported) Rosuvastatin Calcium (Crestor) 5 Mg Tab 5 MG PO 2XW (Reported) TO BE TAKEN ON MONDAY AND MONDAY Vitamin D (Vitamin D) 1,000 Unit Cap 2,000 UNIT PO DAILY (Reported) Warfarin Sod (Coumadin) 5 Mg Tab 5 MG PO 1T (Reported) Scheduled PRN Tramadol HCl (Tramadol HCl) 50 Mg Tab 50 MG PO Q4HP PRN PRN MODERATE PAIN (PS 5- 7) Allergies Coded Allergies: Codeine (Unverified Allergy, Unknown, HALLUCINATIONS, 01/01/15) CONSTANZA HALLMAN MD Aug 31, 2016 15:18
[2016-08-31] MEDS ORDERED: WARFARIN SOD 5 MG TAB PO ONE (17:00)
[2016-08-31 19:49] VITALS: BP 112/54
[2016-08-31] MEDS: ACETAMINOPHEN 500 MG TAB PO SCH (20:12)
[2016-08-31] MEDS: SENOKOT S TAB PO SCH (20:12)
[2016-09-01] MEDS: ACETAMINOPHEN 500 MG TAB PO SCH ×3 (06:05→21:06)
[2016-09-01 06:26] VITALS: BP 128/60
[2016-09-01 07:00] LABS: INR 4.23
[2016-09-01] MEDS ORDERED: busPIRone 10 MG TAB PO SCH (09:00)
[2016-09-01] MEDS ORDERED: busPIRone 10 MG TAB PO PRN (09:00)
[2016-09-01] MEDS ORDERED: PHYTONADIONE 1.25 MG 1/4 TAB PO ONE (09:00)
[2016-09-01] MEDS: VITAMIN D 1,000 INTERNATIONAL UNITS TABLET PO SCH (09:18)
[2016-09-01] MEDS: CYANOCOBALAMIN 500 MCG TAB PO SCH (09:18)
[2016-09-01] MEDS: amLODIPine 5 MG TAB PO SCH (09:19)
[2016-09-01] MEDS: SENOKOT S TAB PO SCH ×2 (09:20→21:06)
[2016-09-01] MEDS: VALSARTAN 80 MG TAB (DIOVAN) PO SCH (09:20)
--- NOTE | 2016-09-01 12:51 | IPNPDOC ---
Route Returner Progress Note PROGRESS NOTE DATE OF SERVICE: 09/01/2016 DATE OF ADMISSION: 08/31/2016 IDENTIFICATION STATEMENT: Ms. Licea is an 86-year-old woman status post right total hip arthroplasty admitted for comprehensive integrated inpatient rehabilitation. PAST MEDICAL HISTORY: 1. Hypertension. 2. Hyperlipidemia. 3. Osteoarthritis. 4. Anxiety. PAST SURGICAL HISTORY: 1. Left total knee arthroplasty 2009. 2. Bunionectomy b/l. 3. Tubal ligation, due to being Rh positive/miscarriages. 4. Left IVIS March 2016 ALLERGIES: CODEINE. MEDICATIONS: - Coumadin dosed daily - BuSpar 10 mg by mouth daily prn - Norvasc 5 mg daily - cyanocobalamin 1000 mcg daily - vitamin D 2000 units daily - Senokot-S one tablet twice a day - valsartan 160 mg daily - Crestor 5 mg Monday and Monday - milk of magnesium 30 mL daily prn - polyethylene glycol one packet daily prn - acetaminophen 1000mg q8h SUBJECTIVE: Patient states still hasnt been able to move her bowels. She further states she has been eating well. She feels distended, but no abdominal pain, no nausea vomiting. Pain adequately controlled. Denies any chest pain, shortness of breath dysuria. Note: Per the patients granddaughter, she was hallucinating last evening again. VITAL SIGNS: 99.1F, pulse 70, respiratory rate 20, blood pressure 118/64, 94% saturation on room air. PHYSICAL EXAMINATION: GENERAL: Well-developed, well-nourished, sitting up in chair, in no acute distress. HEENT: Normocephalic, atraumatic. Pupils are equal, round, and reactive to light. Extraocular motion intact. CARDIOVASCULAR: S1, S2, regular rate. No significant left lower limb edema or calf tenderness. Mild diffuse right lower limb swelling and no calf tenderness per se. LUNGS: Clear to auscultation. No wheezing, rhonchi, or rales. ABDOMEN: Soft, nontender, nondistended. Normoactive bowel sounds throughout. MUSCULOSKELETAL: 5/5 strength in bilateral upper limbs and left lower limb in all major muscle groups, 2/5 right hip flexors, 4/5 right knee extension and flexion, 5/5 right dorsiflexion, plantar flexion and extensor hallucis longus ( EHL). NEUROLOGICAL: Alert and oriented times three. Answers all questions appropriately. Able to follow commands without difficulty. SKIN: +Pain buster in right lateral thigh, Right lateral hip surgical site covered with dressing LABORATORY DATA: 09/01/16: reviewed, see below 08/31/2016: WBC count 12.8, hemoglobin 11.0, hematocrit 33.3, platelets 180. Sodium 138, potassium 4.2, chloride 101, carbon dioxide 27, BUN 13, creatinine 0.73, GFR greater than 60, glucose 142, hemoglobin A1c 5.7, calcium 8.4, magnesium 1.8 OTHER STUDIES: X-ray of the right hip on 08/31/16, status post right arthroplasty in good position. FUNCTIONAL STATUS: PREMORBID: The patient reports being modified independent with ambulation using a front wheeled walker. She was independent with activities of daily living (ADLs). ON ADMISSION: 3 feet with min A & RW, Min A T and bed mobility. ASSESSMENT AND PLAN: 1. Advanced right hip degenerative joint disease status post left hip arthroplasty now with gait abnormality and dysfunctional activities of daily living (ADLs): Weightbearing as tolerated. Hip precautions. Continue daily physical and occupational therapy. Rehabilitation nursing for bladder, bowel, and medication management. 2. Confusion/hallucinations: Resolving. As previously documented, pain medications with the exception of acetaminophen have been discontinued, and BuSpar changed to as needed. Will reconsider pain medication once pain buster has been discontinued pending patients pain levels. 3. Anemia, acute blood loss: Hemoglobin relatively stable per recent labs. Will repeat CBC in a.m. 4. Hypertension: Adequately controlled. Continue Norvasc and valsartan. Adjustments as indicated. 5. Constipation: Patient has not yet received any of her when necessary medications. Well provide her with milk of magnesia now. Continue Senokot-S twice daily. Will consider changing MiraLAX to scheduled pending response to above treatment. 6. Venous thromboembolism (VTE) prophylaxis: Supratherapeutic today. Coumadin on hold. She has received a dose of vitamin K. Dosing by LEIDY Brown of the orthopedic service. Continue sequential compression device (SCD) and thromboembolic-deterrent (YOUSUF) hose. 7. Diet/malnutrition: Prealbumin low. Added Ensure supplements. Maintain low- cholesterol diet.. / Vital Signs Vital Sign - Last 24 Hours 08/31/16 08/31/16 09/01/1609/01/17 15:17 19:49 06:26 09:19 Temp 99.7 99.3 99.1 Pulse 74 75 83 70 Resp 20 20 20 B/P 130/69 112/54 128/60 118/64 Pulse Ox 96 94 94 O2 Delivery Room Air Room Air Room Air Laboratory Data Labs 24H Laboratory Tests 2 09/01/16 06:35: Prealbumin 12.3L, Prothromb Time International Ratio 4.23, Prothrombin Time 40.7H Allergies Allergies: Coded Allergies: Codeine (Unverified Allergy, Unknown, HALLUCINATIONS, 01/01/15) Current Medications Current Medications Current Medications Acetaminophen (Tylenol) 1,000 mg Q8H PO Last administered on 09/01/16 06:05; Start 08/31/16 at 22:00; Stop 09/30/16 at 21:59 Amlodipine Besylate (Norvasc) 5 mg DAILY PO Last administered on 09/01/16 09: 19; Start 09/01/16 at 09:00; Stop 10/01/16 at 08:59 Buspirone HCl (Buspar) 10 mg DAILY PO ; Start 09/01/16 at 09:00; Stop 09/01/16 at 09:00; Status DC Buspirone HCl (Buspar) 10 mg DAILY PRN PO anxiety; Start 09/01/16 at 09:00; Stop 10/01/16 at 08:59 Cyanocobalamin (Vitamin B12) 1,000 mcg DAILY PO Last administered on 09/01/16 09:18; Start 09/01/16 at 09:00; Stop 10/01/16 at 08:59 Magnesium Hydroxide (Milk Of Magnesia) 30 ml DAILYPRN PRN PO CONSTIPATION; Start 08/31/16 at 15:00; Stop 09/30/16 at 14:59 Phytonadione (Vitamin K) 1.25 mg ONCE ONCE PO Last administered on 09/01/16 09:18; Start 09/01/16 at 09:00; Stop 09/01/16 at 09:01; Status DC Polyethylene Glycol (Miralax) 1 pkt DAILY PRN PO CONSTIPATION; Start 08/31/16 at 15:00; Stop 09/30/16 at 14:59 Rosuvastatin Calcium (Crestor) 5 mg MoFr@09 PO ; Start 09/02/16 at 09:00; Stop 10/02/16 at 08:59 Senna/Docusate Sodium (Senokot S) 1 tab BID PO Last administered on 09/01/16 09:20; Start 08/31/16 at 21:00; Stop 09/30/16 at 20:59 Valsartan (Diovan) 160 mg QAM PO Last administered on 09/01/16 09:20; Start at 09:00; Stop 10/01/16 at 08:59 Vitamin D (Vitamin D) 2,000 units DAILY PO Last administered on 09/01/16 09:18 ; Start 09/01/16 at 09:00; Stop 10/01/16 at 08:59 Warfarin Sodium (Coumadin) 5 mg 1T@17 ONCE PO Last administered on 08/31/16 18:37; Start 08/31/16 at 17:00; Stop 08/31/16 at 17:01; Status DC CONSTANZA HALLMAN MD Sep 01, 2016 12:51
[2016-09-01 14:00] VITALS: BP 110/53
[2016-09-01 20:00] VITALS: BP 118/62
[2016-09-02] MEDS: ACETAMINOPHEN 500 MG TAB PO SCH ×3 (05:44→21:41)
[2016-09-02 06:00] VITALS: BP 139/69
[2016-09-02 07:35] LABS: BASO % 0.1 % (0.0-1.0); EOS # 0.1 K/mm3 (0.0-0.50); EOS % 0.8 % (0.0-3.0); LARGE UNSTAINED CELL # 0.2 K/mm3 (0.0-0.4); LARGE UNSTAINED CELL % 1.8 % (0.0-4.0); LYMPH # 0.7 K/mm3 (1.5-4.5); LYMPH % 8.4 % (24.0-44.0); MEAN CORPUSCULAR HEMOGLOBIN 28.2 pg (27.0-33.0); MEAN CORPUSCULAR HGB CONC 33.2 g/dl (32.0-36.5); MEAN CORPUSCULAR VOLUME 85.1 fl (80.0-96.0); MONO # 0.4 K/mm3 (0.0-0.8); MONO % 4.6 % (0.0-5.0); NEUTROPHILS # 6.8 K/mm3 (1.8-7.7); NEUTROPHILS % 84.2 % (36.0-66.0); PLATELET COUNT, AUTOMATED 186 k/mm3 (150-450); RED CELL DISTRIBUTION WIDTH 13.3 % (11.5-14.5)
[2016-09-02 07:42] LABS: INR 2.36
[2016-09-02 07:54] LABS: ANION GAP 5 MEQ/L (8-16); BLOOD UREA NITROGEN 11 MG/DL (7-18); CALCIUM LEVEL 8.4 MG/DL (8.8-10.2); CARBON DIOXIDE LEVEL 29 MEQ/L (21-32); CHLORIDE LEVEL 104 MEQ/L (98-107); CREATININE FOR GFR 0.67 MG/DL (0.55-1.02); GLOMERULAR FILTRATION RATE > 60.0 (>32); GLUCOSE, FASTING 99 MG/DL (83-110); POTASSIUM SERUM 3.9 MEQ/L (3.5-5.1); SODIUM LEVEL 138 MEQ/L (136-145)
[2016-09-02] MEDS: SENOKOT S TAB PO SCH ×2 (08:51→21:41)
[2016-09-02] MEDS: CYANOCOBALAMIN 500 MCG TAB PO SCH (08:51)
[2016-09-02] MEDS: VITAMIN D 1,000 INTERNATIONAL UNITS TABLET PO SCH (08:51)
[2016-09-02] MEDS: amLODIPine 5 MG TAB PO SCH (08:51)
[2016-09-02] MEDS: ROSUVASTATIN 10 MG TAB (CRESTOR) PO SCH (08:52)
[2016-09-02] MEDS: VALSARTAN 80 MG TAB (DIOVAN) PO SCH (08:52)
--- NOTE | 2016-09-02 12:12 | IPNPDOC ---
[employer] Car Supervisor Progress Note PROGRESS NOTE DATE OF SERVICE: 09/02/2016 DATE OF ADMISSION: 08/31/2016 IDENTIFICATION STATEMENT: Ms. Licea is an 86-year-old woman status post right total hip arthroplasty admitted for comprehensive integrated inpatient rehabilitation. PAST MEDICAL HISTORY: 1. Hypertension. 2. Hyperlipidemia. 3. Osteoarthritis. 4. Anxiety. PAST SURGICAL HISTORY: 1. Left total knee arthroplasty 2009. 2. Bunionectomy b/l. 3. Tubal ligation, due to being Rh positive/miscarriages. 4. Left IVIS March 2016 ALLERGIES: CODEINE. MEDICATIONS: - Coumadin dosed daily - BuSpar 10 mg by mouth daily prn - Norvasc 5 mg daily - cyanocobalamin 1000 mcg daily - vitamin D 2000 units daily - Senokot-S one tablet twice a day - valsartan 160 mg daily - Crestor 5 mg Monday and Monday - milk of magnesium 30 mL daily prn - polyethylene glycol one packet daily prn - acetaminophen 1000mg q8h SUBJECTIVE: Still constipated, no BM yet. Otherwise feels well. No nausea/ vomiting. Pain adequately controlled. Denies any chest pain, shortness of breath dysuria. VITAL SIGNS: 98.5F, pulse 84, respiratory rate 18, blood pressure 139/69, 95% saturation on room air. PHYSICAL EXAMINATION: GENERAL: Well-developed, well-nourished, sitting up in chair, in no acute distress. HEENT: Normocephalic, atraumatic. Pupils are equal, round, and reactive to light. Extraocular motion intact. CARDIOVASCULAR: S1, S2, regular rate. No significant left lower limb edema or calf tenderness. Mild diffuse right lower limb swelling and no calf tenderness per se. LUNGS: Clear to auscultation. No wheezing, rhonchi, or rales. ABDOMEN: Soft, nontender, nondistended. Normoactive bowel sounds throughout. MUSCULOSKELETAL: 5/5 strength in bilateral upper limbs and left lower limb in all major muscle groups, 2+/5 right hip flexors, 4/5 right knee extension and flexion, 5/5 right dorsiflexion, plantar flexion and extensor hallucis longus ( EHL). NEUROLOGICAL: Alert and oriented times three. Answers all questions appropriately. Able to follow commands without difficulty. SKIN: Right lateral hip surgical site optifoam dressing rolled up 1/3 way from distal aspect, C/I w antony, min serosang drainage LABORATORY DATA: 09/02/16: reviewed, see below 08/31/2016: WBC count 12.8, hemoglobin 11.0, hematocrit 33.3, platelets 180. Sodium 138, potassium 4.2, chloride 101, carbon dioxide 27, BUN 13, creatinine 0.73, GFR greater than 60, glucose 142, hemoglobin A1c 5.7, calcium 8.4, magnesium 1.8 OTHER STUDIES: X-ray of the right hip on 08/31/16, status post right arthroplasty in good position. FUNCTIONAL STATUS: PREMORBID: The patient reports being modified independent with ambulation using a front wheeled walker. She was independent with activities of daily living (ADLs). ON ADMISSION: 3 feet with min A & RW, Min A T and bed mobility. ASSESSMENT AND PLAN: 1. Advanced right hip degenerative joint disease status post left hip arthroplasty now with gait abnormality and dysfunctional activities of daily living (ADLs): WBAT. Hip precautions. Continue daily physical and occupational therapy. Rehabilitation nursing for bladder, bowel, and medication management. 2. Confusion/hallucinations: Resolving. [Hx: opioid medications have been discontinued, and BuSpar changed to as needed]. 3. Pain: Pain buster d/cd yesterday. Adequately controlled at this time with scheduled Tylenol and intermittent ice. 4. Anemia, acute blood loss: Hemoglobin relatively stable per recent labs. 4. Hypertension: Adequately controlled. Continue Norvasc and valsartan. Adjustments as indicated. 5. Constipation: Persistent. Mag citrate if needed today. Continue Senokot-S twice daily. Mirlax and MOM as needed. 6. Venous thromboembolism (VTE) prophylaxis: Coumadin dosed by LEIDY Brown of the orthopedic service. Continue sequential compression device (SCD) and thromboembolic-deterrent (YOUSUF) hose. 7. Diet/malnutrition: Prealbumin low. Continue Ensure supplements. Maintain low-cholesterol diet. / Vital Signs Vital Sign - Last 24 Hours 09/01/16 09/01/16 09/02/16 09/02/16 14:00 20:00 06:00 08:51 Temp 99.5 97.9 98.5 Pulse 80 82 84 84 Resp B/P 110/53 118/62 139/69 139/69 Pulse Ox 95 96 95 O2 Delivery Room Air Room Air Room Air 09/02/16 08:52 B/P 139/69 Laboratory Data CBC/BMP Laboratory Tests 09/02/16 06:58 Calcium Level 8.4 L, Red Blood Count 3.62 L, Mean Corpuscular Volume 85.1, Mean Corpuscular Hemoglobin 28.2, Mean Corpuscular Hemoglobin Concent 33.2, Red Cell Distribution Width 13.3, Neutrophils (%) (Auto) 84.2 H, Lymphocytes (%) (Auto) 8.4 L, Monocytes (%) (Auto) 4.6, Eosinophils (%) (Auto) 0.8, Basophils (%) (Auto ) 0.1, Neutrophils # (Auto) 6.8, Lymphocytes # (Auto) 0.7 L, Monocytes # (Auto) 0.4, Eosinophils # (Auto) 0.1, Basophils # (Auto) 0.0 Labs 24H Laboratory Tests 2 09/02/16 06:58: Anion Gap 5L, White Blood Count 8.0, Red Blood Count 3.62L, Hemoglobin 10.2L, Hematocrit 30.8L, Mean Corpuscular Volume 85.1, Mean Corpuscular Hemoglobin 28.2 , Mean Corpuscular Hemoglobin Concent 33.2, Red Cell Distribution Width 13.3, Platelet Count 186, Neutrophils (%) (Auto) 84.2H, Lymphocytes (%) (Auto) 8.4L, Monocytes (%) (Auto) 4.6, Eosinophils (%) (Auto) 0.8, Basophils (%) (Auto) 0.1, Neutrophils # (Auto) 6.8, Lymphocytes # (Auto) 0.7L, Monocytes # (Auto) 0.4, Eosinophils # (Auto) 0.1, Basophils # (Auto) 0.0, Blood Urea Nitrogen 11, Creatinine 0.67, Sodium Level 138, Potassium Level 3.9, Chloride Level 104, Carbon Dioxide Level 29, Calcium Level 8.4L, Glomerular Filtration Rate > 60.0, Large Unclassified Cells # 0.2, Large Unclassified Cells % 1.8, Prothromb Time International Ratio 2.36, Prothrombin Time 25.9H Allergies Allergies: Coded Allergies: Codeine (Unverified Allergy, Unknown, HALLUCINATIONS, 01/01/15) Current Medications Current Medications Current Medications Acetaminophen (Tylenol) 1,000 mg Q8H PO Last administered on 09/02/16 05:44; Start 08/31/16 at 22:00; Stop 09/30/16 at 21:59 Amlodipine Besylate (Norvasc) 5 mg DAILY PO Last administered on 09/02/16 08: 51; Start 09/01/16 at 09:00; Stop 10/01/16 at 08:59 Buspirone HCl (Buspar) 10 mg DAILY PO ; Start 09/01/16 at 09:00; Stop 09/01/16 at 09:00; Status DC Buspirone HCl (Buspar) 10 mg DAILY PRN PO anxiety; Start 09/01/16 at 09:00; Stop 10/01/16 at 08:59 Cyanocobalamin (Vitamin B12) 1,000 mcg DAILY PO Last administered on 09/02/16 08:51; Start 09/01/16 at 09:00; Stop 10/01/16 at 08:59 Magnesium Hydroxide (Milk Of Magnesia) 30 ml DAILYPRN PRN PO CONSTIPATION Last administered on 09/02/16 08:51; Start 08/31/16 at 15:00; Stop 09/30/16 at 14:59 Phytonadione (Vitamin K) 1.25 mg ONCE ONCE PO Last administered on 09/01/16 09:18; Start 09/01/16 at 09:00; Stop 09/01/16 at 09:01; Status DC Polyethylene Glycol (Miralax) 1 pkt DAILY PRN PO CONSTIPATION Last administered on 09/02/16 08:50; Start 08/31/16 at 15:00; Stop 09/30/16 at 14:59 Rosuvastatin Calcium (Crestor) 5 mg MoFr@09 PO Last administered on 09/02/16 08:52; Start 09/02/16 at 09:00; Stop 10/02/16 at 08:59 Senna/Docusate Sodium (Senokot S) 1 tab BID PO Last administered on 09/02/16 08:51; Start 08/31/16 at 21:00; Stop 09/30/16 at 20:59 Valsartan (Diovan) 160 mg QAM PO Last administered on 09/02/16 08:52; Start at 09:00; Stop 10/01/16 at 08:59 Vitamin D (Vitamin D) 2,000 units DAILY PO Last administered on 09/02/16 08:51 ; Start 09/01/16 at 09:00; Stop 10/01/16 at 08:59 Warfarin Sodium (Coumadin) 5 mg @ ONCE PO Last administered on 08/31/16t 18:37; Start 08/31/16 at 17:00; Stop 08/31/16 at 17:01; Status DC CONSTANZA HALLMAN MD Sep 02, 2016 12:12
[2016-09-02 14:00] VITALS: BP 114/57
[2016-09-02 20:00] VITALS: BP 117/56
[2016-09-03 02:30] VITALS: BP_SYST 117; BP_SYST 144; BP_DIAS 56; BP_DIAS 75
[2016-09-03] MEDS: ACETAMINOPHEN 500 MG TAB PO SCH ×3 (05:24→21:13)
[2016-09-03 07:13] LABS: INR 2.42
[2016-09-03] MEDS: SENOKOT S TAB PO SCH ×2 (08:49→21:13)
[2016-09-03] MEDS: CYANOCOBALAMIN 500 MCG TAB PO SCH (08:50)
[2016-09-03] MEDS: amLODIPine 5 MG TAB PO SCH (08:50)
[2016-09-03] MEDS: VITAMIN D 1,000 INTERNATIONAL UNITS TABLET PO SCH (08:50)
[2016-09-03] MEDS: VALSARTAN 80 MG TAB (DIOVAN) PO SCH (08:50)
[2016-09-03 14:00] VITALS: BP 116/60
[2016-09-03 20:00] VITALS: BP 124/61
[2016-09-04] MEDS: ACETAMINOPHEN 500 MG TAB PO SCH ×3 (05:27→21:01)
[2016-09-04 06:00] VITALS: BP 132/70
[2016-09-04 07:03] LABS: MEAN CORPUSCULAR HEMOGLOBIN 28.8 pg (27.0-33.0); MEAN CORPUSCULAR HGB CONC 33.4 g/dl (32.0-36.5); MEAN CORPUSCULAR VOLUME 86.4 fl (80.0-96.0); RED CELL DISTRIBUTION WIDTH 13.6 % (11.5-14.5); WHITE BLOOD COUNT 5.8 K/mm3 (4.0-10.0)
[2016-09-04 07:14] LABS: INR 1.97
[2016-09-04 07:23] LABS: ANION GAP 8 MEQ/L (8-16); BLOOD UREA NITROGEN 13 MG/DL (7-18); CALCIUM LEVEL 8.5 MG/DL (8.8-10.2); CARBON DIOXIDE LEVEL 26 MEQ/L (21-32); CHLORIDE LEVEL 106 MEQ/L (98-107); CREATININE FOR GFR 0.69 MG/DL (0.55-1.02); GLOMERULAR FILTRATION RATE > 60.0 (>32); GLUCOSE, FASTING 100 MG/DL (83-110); POTASSIUM SERUM 4.3 MEQ/L (3.5-5.1); SODIUM LEVEL 140 MEQ/L (136-145)
[2016-09-04] MEDS: SENOKOT S TAB PO SCH ×2 (10:31→20:08)
[2016-09-04] MEDS: CYANOCOBALAMIN 500 MCG TAB PO SCH (10:32)
[2016-09-04] MEDS: VITAMIN D 1,000 INTERNATIONAL UNITS TABLET PO SCH (10:32)
[2016-09-04] MEDS: VALSARTAN 80 MG TAB (DIOVAN) PO SCH (10:36)
[2016-09-04] MEDS: amLODIPine 5 MG TAB PO SCH (10:37)
[2016-09-04 14:00] VITALS: BP_SYST 108; BP_SYST 126; BP_DIAS 54; BP_DIAS 59
[2016-09-04] MEDS ORDERED: WARFARIN SOD 2.5 MG TAB PO ONE (17:00)
[2016-09-04 20:05] VITALS: BP 133/64
[2016-09-05] MEDS: ACETAMINOPHEN 500 MG TAB PO SCH ×3 (05:54→21:40)
[2016-09-05 06:00] VITALS: BP 133/63
[2016-09-05 06:50] LABS: MEAN CORPUSCULAR HEMOGLOBIN 29.1 pg (27.0-33.0); MEAN CORPUSCULAR HGB CONC 33.7 g/dl (32.0-36.5); MEAN CORPUSCULAR VOLUME 86.3 fl (80.0-96.0); RED CELL DISTRIBUTION WIDTH 13.6 % (11.5-14.5); WHITE BLOOD COUNT 4.9 K/mm3 (4.0-10.0)
[2016-09-05 06:52] LABS: INR 2.11
[2016-09-05 07:29] LABS: ANION GAP 10 MEQ/L (8-16); BLOOD UREA NITROGEN 13 MG/DL (7-18); CALCIUM LEVEL 8.4 MG/DL (8.8-10.2); CARBON DIOXIDE LEVEL 26 MEQ/L (21-32); CHLORIDE LEVEL 103 MEQ/L (98-107); CREATININE FOR GFR 0.69 MG/DL (0.55-1.02); GLOMERULAR FILTRATION RATE > 60.0 (>32); GLUCOSE, FASTING 94 MG/DL (83-110); POTASSIUM SERUM 4.2 MEQ/L (3.5-5.1); SODIUM LEVEL 139 MEQ/L (136-145)
[2016-09-05] MEDS: CYANOCOBALAMIN 500 MCG TAB PO SCH (08:16)
[2016-09-05] MEDS: amLODIPine 5 MG TAB PO SCH (08:16)
[2016-09-05] MEDS: SENOKOT S TAB PO SCH ×2 (08:18→21:40)
[2016-09-05] MEDS: VITAMIN D 1,000 INTERNATIONAL UNITS TABLET PO SCH (08:18)
[2016-09-05] MEDS: ROSUVASTATIN 10 MG TAB (CRESTOR) PO SCH (08:18)
[2016-09-05] MEDS: VALSARTAN 80 MG TAB (DIOVAN) PO SCH (08:18)
--- NOTE | 2016-09-05 11:03 | IPNPDOC ---
Care Administrative Tech Progress Note PROGRESS NOTE DATE OF SERVICE: 09/05/2016 DATE OF ADMISSION: 08/31/2016 IDENTIFICATION STATEMENT: Ms. Licea is an 86-year-old woman status post right total hip arthroplasty admitted for comprehensive integrated inpatient rehabilitation. PAST MEDICAL HISTORY: 1. Hypertension. 2. Hyperlipidemia. 3. Osteoarthritis. 4. Anxiety. PAST SURGICAL HISTORY: 1. Left total knee arthroplasty 2009. 2. Bunionectomy b/l. 3. Tubal ligation, due to being Rh positive/miscarriages. 4. Left IVIS March 2016 ALLERGIES: CODEINE. MEDICATIONS: - Coumadin dosed daily - BuSpar 10 mg by mouth daily prn - Norvasc 5 mg daily - cyanocobalamin 1000 mcg daily - vitamin D 2000 units daily - Senokot-S one tablet twice a day - valsartan 160 mg daily - Crestor 5 mg Monday and Monday - milk of magnesium 30 mL daily prn - polyethylene glycol one packet daily prn - acetaminophen 1000mg q8h SUBJECTIVE: No complaints, pipes are working, feels well. Pain there but tolerable. Denies any chest pain, shortness of breath, N/V, dysuria. VITAL SIGNS: 98.5F, pulse 75, respiratory rate 18, blood pressure 133/63, 96% saturation on room air. PHYSICAL EXAMINATION: GENERAL: Well-developed, well-nourished, sitting up on couch, no acute distress. HEENT: Normocephalic, atraumatic. Pupils are equal, round, and reactive to light. Extraocular motion intact. CARDIOVASCULAR: S1, S2, regular rate. No significant left lower limb edema or calf tenderness. Mild diffuse right lower limb swelling and no calf tenderness per se. LUNGS: Clear to auscultation. No wheezing, rhonchi, or rales. ABDOMEN: Soft, nontender, nondistended. Normoactive bowel sounds throughout. MUSCULOSKELETAL: 5/5 strength in bilateral upper limbs and left lower limb in all major muscle groups, 3/5 right hip flexors, 4+/5 right knee extension and flexion, 5/5 right dorsiflexion, plantar flexion and extensor hallucis longus ( EHL). NEUROLOGICAL: Alert and oriented times three. Answers all questions appropriately. Able to follow commands without difficulty. SKIN: Right lateral hip surgical site optifoam dressing breached superior aspect, scant serous drainage, incision C/I w antony LABORATORY DATA: 09/05/16: reviewed, see below 08/31/2016: WBC count 12.8, hemoglobin 11.0, hematocrit 33.3, platelets 180. Sodium 138, potassium 4.2, chloride 101, carbon dioxide 27, BUN 13, creatinine 0.73, GFR greater than 60, glucose 142, hemoglobin A1c 5.7, calcium 8.4, magnesium 1.8 OTHER STUDIES: X-ray of the right hip on 08/31/16, status post right arthroplasty in good position. FUNCTIONAL STATUS: PREMORBID: The patient reports being modified independent with ambulation using a front wheeled walker. She was independent with activities of daily living (ADLs). ON ADMISSION: 3 feet with min A & RW, Min A T and bed mobility. ASSESSMENT AND PLAN: 1. Advanced right hip degenerative joint disease status post left hip arthroplasty with resultant gait abnormality and dysfunctional activities of daily living (ADLs): WBAT. Hip precautions. Continue daily physical and occupational therapy. Rehabilitation nursing for bladder, bowel, and medication management. 2. Confusion/hallucinations: resolved. [Hx: opioid medications have been discontinued, and BuSpar changed to as needed]. 3. Pain: Pain buster d/cd 09/01/16. Adequately controlled with scheduled Tylenol and intermittent ice. 4. Anemia, acute blood loss: Hemoglobin relatively stable per recent labs. 5. Hypertension: Adequately controlled. Continue Norvasc and valsartan. Adjustments if needed. 6. Constipation: Resolved s/p Mag citrate. Continue Senokot-S twice daily. Mirlax and MOM as needed. 7. Venous thromboembolism (VTE) prophylaxis: Coumadin dosed by LEIDY Brown of the orthopedic service. Continue sequential compression device (SCD) and thromboembolic-deterrent (YOUSUF) hose. 8. Diet/malnutrition: Prealbumin low. Continue Ensure supplements. Maintain low-cholesterol diet. / Vital Signs Vital Sign - Last 24 Hours 09/04/16 09/04/16 09/05/16 09/05/16 14:00 20:05 06:00 08:16 Temp 99.0 98.7 98.5 Pulse 80 75 75 75 Resp 18 18 B/P 126/59 133/64 133/63 133/63 Pulse Ox 97 97 96 O2 Delivery Room Air Room Air Room Air 09/05/16 08:18 B/P 133/63 Laboratory Data CBC/BMP Laboratory Tests 09/05/16 06:19 Calcium Level 8.4 L, Red Blood Count 3.64 L, Mean Corpuscular Volume 86.3, Mean Corpuscular Hemoglobin 29.1, Mean Corpuscular Hemoglobin Concent 33.7, Red Cell Distribution Width 13.6 Labs 24H Laboratory Tests 2 09/05/16 06:19: Anion Gap 10, Blood Urea Nitrogen 13, Creatinine 0.69, Sodium Level 139, Potassium Level 4.2, Chloride Level 103, Carbon Dioxide Level 26, Calcium Level 8.4L, Glomerular Filtration Rate > 60.0, Prothromb Time International Ratio 2.11 , Prothrombin Time 23.7H Allergies Allergies: Coded Allergies: Codeine (Unverified Allergy, Unknown, HALLUCINATIONS, 01/01/15) Current Medications Current Medications Current Medications Acetaminophen (Tylenol) 1,000 mg Q8H PO Last administered on 09/05/16 05:54; Start 08/31/16 at 22:00; Stop 09/30/16 at 21:59 Amlodipine Besylate (Norvasc) 5 mg DAILY PO Last administered on 09/05/16 08: 16; Start 09/01/16 at 09:00; Stop 10/01/16 at 08:59 Buspirone HCl (Buspar) 10 mg DAILY PO ; Start 09/01/16 at 09:00; Stop 09/01/16 at 09:00; Status DC Buspirone HCl (Buspar) 10 mg DAILY PRN PO anxiety; Start 09/01/16 at 09:00; Stop 10/01/16 at 08:59 Cyanocobalamin (Vitamin B12) 1,000 mcg DAILY PO Last administered on 09/05/16 08:16; Start 09/01/16 at 09:00; Stop 10/01/16 at 08:59 Magnesium Hydroxide (Milk Of Magnesia) 30 ml DAILYPRN PRN PO CONSTIPATION Last administered on 09/02/16 08:51; Start 08/31/16 at 15:00; Stop 09/30/16 at 14:59 Phytonadione (Vitamin K) 1.25 mg ONCE ONCE PO Last administered on 09/01/16 09:18; Start 09/01/16 at 09:00; Stop 09/01/16 at 09:01; Status DC Polyethylene Glycol (Miralax) 1 pkt DAILY PRN PO CONSTIPATION Last administered on 09/02/16 08:50; Start 08/31/16 at 15:00; Stop 09/30/16 at 14:59 Rosuvastatin Calcium (Crestor) 5 mg MoFr@09 PO Last administered on 09/05/16 08:18; Start 09/02/16 at 09:00; Stop 10/02/16 at 08:59 Senna/Docusate Sodium (Senokot S) 1 tab BID PO Last administered on 09/04/16 20:08; Start 08/31/16 at 21:00; Stop 09/30/16 at 20:59 Valsartan (Diovan) 160 mg QAM PO Last administered on 09/05/16 08:18; Start at 09:00; Stop 10/01/16 at 08:59 Vitamin D (Vitamin D) 2,000 units DAILY PO Last administered on 09/05/16 08:18 ; Start 09/01/16 at 09:00; Stop 10/01/16 at 08:59 Warfarin Sodium (Coumadin) 2.5 mg 1T@17 ONCE PO Last administered on 16:44; Start 09/04/16 at 17:00; Stop 09/04/16 at 17:01; Status DC Warfarin Sodium (Coumadin) 5 mg 1T@17 ONCE PO Last administered on 08/31/16 18:37; Start 08/31/16 at 17:00; Stop 08/31/16 at 17:01; Status DC CONSTANZA HALLMAN MD Sep 05, 2016 11:03
[2016-09-05 14:00] VITALS: BP 112/58
[2016-09-05 20:30] VITALS: BP 119/61
[2016-09-06 06:00] VITALS: BP 143/85
[2016-09-06] MEDS: ACETAMINOPHEN 500 MG TAB PO SCH ×3 (06:12→21:24)
[2016-09-06 07:11] LABS: INR 1.87
[2016-09-06] MEDS: VITAMIN D 1,000 INTERNATIONAL UNITS TABLET PO SCH (08:49)
[2016-09-06] MEDS: CYANOCOBALAMIN 500 MCG TAB PO SCH (08:49)
[2016-09-06] MEDS: VALSARTAN 80 MG TAB (DIOVAN) PO SCH (08:50)
[2016-09-06] MEDS: amLODIPine 5 MG TAB PO SCH (08:50)
[2016-09-06] MEDS: SENOKOT S TAB PO SCH ×2 (08:50→21:24)
--- NOTE | 2016-09-06 13:27 | IPNPDOC ---
Plumber Progress Note PROGRESS NOTE DATE OF SERVICE: 09/06/2016 DATE OF ADMISSION: 08/31/2016 IDENTIFICATION STATEMENT: Ms. Licea is an 86-year-old woman status post right total hip arthroplasty admitted for comprehensive integrated inpatient rehabilitation. PAST MEDICAL HISTORY: 1. Hypertension. 2. Hyperlipidemia. 3. Osteoarthritis. 4. Anxiety. PAST SURGICAL HISTORY: 1. Left total knee arthroplasty 2009. 2. Bunionectomy b/l. 3. Tubal ligation, due to being Rh positive/miscarriages. 4. Left IVIS March 2016 ALLERGIES: CODEINE. MEDICATIONS: - Coumadin dosed daily - BuSpar 10 mg by mouth daily prn - Norvasc 5 mg daily - cyanocobalamin 1000 mcg daily - vitamin D 2000 units daily - Senokot-S one tablet twice a day - valsartan 160 mg daily - Crestor 5 mg Monday and Monday - milk of magnesium 30 mL daily prn - polyethylene glycol one packet daily prn - acetaminophen 1000mg q8h SUBJECTIVE: Patient w/o complaints, feels well. Pain there but tolerable. Denies any chest pain, shortness of breath, N/V, dysuria. VITAL SIGNS: 98.4F, pulse 83, respiratory rate 20, blood pressure 143/85, 96% saturation on room air. PHYSICAL EXAMINATION: GENERAL: Well-developed, well-nourished, sitting up on couch, no acute distress. HEENT: Normocephalic, atraumatic. Pupils are equal, round, and reactive to light. Extraocular motion intact. CARDIOVASCULAR: S1, S2, regular rate. No significant left lower limb edema or calf tenderness. Mild diffuse right lower limb swelling and no calf tenderness per se. LUNGS: Clear to auscultation. No wheezing, rhonchi, or rales. ABDOMEN: Soft, nontender, nondistended. Normoactive bowel sounds throughout. MUSCULOSKELETAL: 5/5 strength in bilateral upper limbs and left lower limb in all major muscle groups, 4/5 right hip flexors, 4+/5 right knee extension and flexion, 5/5 right dorsiflexion, plantar flexion and extensor hallucis longus ( EHL). NEUROLOGICAL: Alert and oriented times three. Answers all questions appropriately. Able to follow commands without difficulty. SKIN: Right lateral hip surgical site with optifoam dressing LABORATORY DATA: 09/06/16: reviewed, see below 08/31/2016: WBC count 12.8, hemoglobin 11.0, hematocrit 33.3, platelets 180. Sodium 138, potassium 4.2, chloride 101, carbon dioxide 27, BUN 13, creatinine 0.73, GFR greater than 60, glucose 142, hemoglobin A1c 5.7, calcium 8.4, magnesium 1.8 OTHER STUDIES: X-ray of the right hip on 08/31/16, status post right arthroplasty in good position. FUNCTIONAL STATUS: PREMORBID: The patient reports being modified independent with ambulation using a front wheeled walker. She was independent with activities of daily living (ADLs). ON ADMISSION: 3 feet with min A & RW, Min A T and bed mobility. ASSESSMENT AND PLAN: 1. Advanced right hip degenerative joint disease status post left hip arthroplasty with resultant gait abnormality and dysfunctional activities of daily living (ADLs): WBAT. Hip precautions. Patient making significant gains, plan is for apartment stay tomorrow 09/07/16. Anticipated d/c 09/08/16. Continue daily physical and occupational therapy. Rehabilitation nursing for bladder, bowel, and medication management. 2. Confusion/hallucinations: Resolved. [Hx: opioid medications have been discontinued, and BuSpar changed to as needed]. 3. Pain: Pain buster d/cd 09/01/16. Adequately controlled with scheduled Tylenol and intermittent ice. 4. Anemia, acute blood loss: Hemoglobin relatively stable. 5. Hypertension: Adequately controlled. Continue Norvasc and valsartan. Adjustments if needed. 6. Constipation: Resolved s/p Mag citrate. Continue Senokot-S twice daily. Mirlax and MOM as needed. 7. Venous thromboembolism (VTE) prophylaxis: Coumadin dosed by LEIDY Brown of the orthopedic service. Continue sequential compression device (SCD) and thromboembolic-deterrent (YOUSUF) hose. 8. Diet/malnutrition: Prealbumin low. Continue Ensure supplements. Maintain low-cholesterol diet. / Vital Signs Vital Sign - Last 24 Hours 09/05/16 09/05/16 09/06/16 09/06/16 14:00 20:30 06:00 08:50 Temp 97.4 98.0 98.4 Pulse 72 71 83 83 Resp 18 20 20 B/P 112/58 119/61 143/85 143/85 Pulse Ox 98 96 96 O2 Delivery Room Air Room Air Room Air 09/06/16 08:50 B/P 143/85 Laboratory Data Labs 24H Laboratory Tests 2 09/06/16 06:31: Prothromb Time International Ratio 1.87, Prothrombin Time 21.6H Allergies Allergies: Coded Allergies: Codeine (Unverified Allergy, Unknown, HALLUCINATIONS, 01/01/15) Current Medications Current Medications Current Medications Acetaminophen (Tylenol) 1,000 mg Q8H PO Last administered on 09/06/16 06:12; Start 08/31/16 at 22:00; Stop 09/30/16 at 21:59 Amlodipine Besylate (Norvasc) 5 mg DAILY PO Last administered on 09/06/16 08: 50; Start 09/01/16 at 09:00; Stop 10/01/16 at 08:59 Buspirone HCl (Buspar) 10 mg DAILY PO ; Start 09/01/16 at 09:00; Stop 09/01/16 at 09:00; Status DC Buspirone HCl (Buspar) 10 mg DAILY PRN PO anxiety; Start 09/01/16 at 09:00; Stop 10/01/16 at 08:59 Cyanocobalamin (Vitamin B12) 1,000 mcg DAILY PO Last administered on 09/06/16 08:49; Start 09/01/16 at 09:00; Stop 10/01/16 at 08:59 Magnesium Hydroxide (Milk Of Magnesia) 30 ml DAILYPRN PRN PO CONSTIPATION Last administered on 09/02/16 08:51; Start 08/31/16 at 15:00; Stop 09/30/16 at 14:59 Polyethylene Glycol (Miralax) 1 pkt DAILY PRN PO CONSTIPATION Last administered on 09/02/16 08:50; Start 08/31/16 at 15:00; Stop 09/30/16 at 14:59 Rosuvastatin Calcium (Crestor) 5 mg MoFr@09 PO Last administered on 09/05/16 08:18; Start 09/02/16 at 09:00; Stop 10/02/16 at 08:59 Senna/Docusate Sodium (Senokot S) 1 tab BID PO Last administered on 09/05/16 21:40; Start 08/31/16 at 21:00; Stop 09/30/16 at 20:59 Valsartan (Diovan) 160 mg QAM PO Last administered on 09/06/16 08:50; Start at 09:00; Stop 10/01/16 at 08:59 Vitamin D (Vitamin D) 2,000 units DAILY PO Last administered on 09/06/16 08:49 ; Start 09/01/16 at 09:00; Stop 10/01/16 at 08:59 CONSTANZA HALLMAN MD Sep 06, 2016 13:26
[2016-09-06 14:00] VITALS: BP 127/59
[2016-09-06] MEDS ORDERED: WARFARIN SOD 2.5 MG TAB PO ONE (17:00)
[2016-09-06 20:00] VITALS: BP 105/54
[2016-09-07 06:00] VITALS: BP 133/61
[2016-09-07] MEDS: ACETAMINOPHEN 500 MG TAB PO SCH ×3 (06:25→21:48)
[2016-09-07 08:24] LABS: INR 1.74
[2016-09-07] MEDS: SENOKOT S TAB PO SCH ×2 (08:33→21:48)
[2016-09-07] MEDS: amLODIPine 5 MG TAB PO SCH (08:34)
[2016-09-07] MEDS: VALSARTAN 80 MG TAB (DIOVAN) PO SCH (08:34)
[2016-09-07] MEDS: CYANOCOBALAMIN 500 MCG TAB PO SCH (08:34)
[2016-09-07] MEDS: VITAMIN D 1,000 INTERNATIONAL UNITS TABLET PO SCH (08:35)
--- NOTE | 2016-09-07 12:16 | IPNPDOC ---
Healthcare Administrative Assistant Progress Note PROGRESS NOTE DATE OF SERVICE: 09/07/2016 DATE OF ADMISSION: 08/31/2016 IDENTIFICATION STATEMENT: Ms. Licea is an 86-year-old woman status post right total hip arthroplasty admitted for comprehensive integrated inpatient rehabilitation. PAST MEDICAL HISTORY: 1. Hypertension. 2. Hyperlipidemia. 3. Osteoarthritis. 4. Anxiety. PAST SURGICAL HISTORY: 1. Left total knee arthroplasty 2009. 2. Bunionectomy b/l. 3. Tubal ligation, due to being Rh positive/miscarriages. 4. Left IVIS March 2016 ALLERGIES: CODEINE. MEDICATIONS: - Coumadin dosed daily - BuSpar 10 mg by mouth daily prn - Norvasc 5 mg daily - cyanocobalamin 1000 mcg daily - vitamin D 2000 units daily - Senokot-S one tablet twice a day - valsartan 160 mg daily - Crestor 5 mg Monday and Monday - milk of magnesium 30 mL daily prn - polyethylene glycol one packet daily prn - acetaminophen 1000mg q8h SUBJECTIVE: No complaints, feels well. Pain tolerable. Denies any chest pain, shortness of breath, N/V, dysuria. Doesnt want to go to apartment today, states too far from nurses station. VITAL SIGNS: 99.2F, pulse 83, respiratory rate 72, blood pressure 130/60, 95% saturation on room air. PHYSICAL EXAMINATION: GENERAL: Well-developed, well-nourished, sitting up, no acute distress. HEENT: Normocephalic, atraumatic. PERRL. Extraocular motion intact. CARDIOVASCULAR: S1, S2, regular rate. No significant left lower limb edema or calf tenderness. Mild diffuse right lower limb swelling and no calf tenderness per se. LUNGS: Clear to auscultation. No wheezing, rhonchi, or rales. ABDOMEN: Soft, nontender, nondistended. Normoactive bowel sounds throughout. MUSCULOSKELETAL: 5/5 strength in bilateral upper limbs and left lower limb in all major muscle groups, 4/5 right hip flexors, 4+/5 right knee extension and flexion, 5/5 right dorsiflexion, plantar flexion and extensor hallucis longus ( EHL). NEUROLOGICAL: Alert and oriented times three. Answers all questions appropriately. Able to follow commands without difficulty. SKIN: Right lateral hip surgical site with optifoam dressing LABORATORY DATA: 09/07/16: reviewed, see below 08/31/2016: WBC count 12.8, hemoglobin 11.0, hematocrit 33.3, platelets 180. Sodium 138, potassium 4.2, chloride 101, carbon dioxide 27, BUN 13, creatinine 0.73, GFR greater than 60, glucose 142, hemoglobin A1c 5.7, calcium 8.4, magnesium 1.8 OTHER STUDIES: X-ray of the right hip on 08/31/16, status post right arthroplasty in good position. FUNCTIONAL STATUS: PREMORBID: The patient reports being modified independent with ambulation using a front wheeled walker. She was independent with activities of daily living (ADLs). ON ADMISSION: 3 feet with min A & RW, Min A T and bed mobility. ASSESSMENT AND PLAN: 1. Advanced right hip degenerative joint disease status post left hip arthroplasty with resultant gait abnormality and dysfunctional activities of daily living (ADLs): WBAT. Hip precautions. Patient making significant gains, Discussed purpose of apartment stay w patient but she was adamant about not moving. Anticipated d/c 09/08/16. Continue daily physical and occupational therapy. Rehabilitation nursing for bladder, bowel, and medication management. 2. Confusion/hallucinations: Resolved. [Hx: opioid medications have been discontinued, and BuSpar changed to as needed]. 3. Pain: Pain buster d/cd 09/01/16. Adequately controlled with scheduled Tylenol and intermittent ice. 4. Anemia, acute blood loss: Hemoglobin relatively stable. 5. Hypertension: Adequately controlled. Continue Norvasc and valsartan. Adjustments if needed. 6. Constipation: Resolved s/p Mag citrate. Continue Senokot-S twice daily. Mirlax and MOM as needed. 7. Venous thromboembolism (VTE) prophylaxis: Coumadin dosed by LEIDY Brown of the orthopedic service. Continue sequential compression device (SCD) and thromboembolic-deterrent (YOUSUF) hose. 8. Diet/malnutrition: Prealbumin low. Continue Ensure supplements. Maintain low-cholesterol diet. / Vital Signs Vital Sign - Last 24 Hours 09/06/16 09/06/16 09/07/16 09/07/16 14:00 20:00 06:00 08:34 Temp 99.2 98.7 99.2 Pulse 71 69 79 72 Resp 20 19 18 B/P 127/59 105/54 133/61 130/60 Pulse Ox 97 95 95 O2 Delivery Room Air Room Air Room Air Laboratory Data Labs 24H Laboratory Tests 2 09/07/16 08:03: Prothromb Time International Ratio 1.74, Prothrombin Time 20.4H Allergies Allergies: Coded Allergies: Codeine (Unverified Allergy, Unknown, HALLUCINATIONS, 01/01/15) Current Medications Current Medications Current Medications Acetaminophen (Tylenol) 1,000 mg Q8H PO Last administered on 09/07/16 06:25; Start 08/31/16 at 22:00; Stop 09/30/16 at 21:59 Amlodipine Besylate (Norvasc) 5 mg DAILY PO Last administered on 09/07/16 08: 34; Start 09/01/16 at 09:00; Stop 10/01/16 at 08:59 Buspirone HCl (Buspar) 10 mg DAILY PO ; Start 09/01/16 at 09:00; Stop 09/01/16 at 09:00; Status DC Buspirone HCl (Buspar) 10 mg DAILY PRN PO anxiety; Start 09/01/16 at 09:00; Stop 10/01/16 at 08:59 Cyanocobalamin (Vitamin B12) 1,000 mcg DAILY PO Last administered on 09/07/16 08:34; Start 09/01/16 at 09:00; Stop 10/01/16 at 08:59 Magnesium Hydroxide (Milk Of Magnesia) 30 ml DAILYPRN PRN PO CONSTIPATION Last administered on 09/02/16 08:51; Start 08/31/16 at 15:00; Stop 09/30/16 at 14:59 Polyethylene Glycol (Miralax) 1 pkt DAILY PRN PO CONSTIPATION Last administered on 09/02/16 08:50; Start 08/31/16 at 15:00; Stop 09/30/16 at 14:59 Rosuvastatin Calcium (Crestor) 5 mg MoFr@09 PO Last administered on 09/05/16 08:18; Start 09/02/16 at 09:00; Stop 10/02/16 at 08:59 Senna/Docusate Sodium (Senokot S) 1 tab BID PO Last administered on 09/07/16 08:33; Start 08/31/16 at 21:00; Stop 09/30/16 at 20:59 Valsartan (Diovan) 160 mg QAM PO Last administered on 09/07/16 08:34; Start at 09:00; Stop 10/01/16 at 08:59 Vitamin D (Vitamin D) 2,000 units DAILY PO Last administered on 09/07/16 08:35 ; Start 09/01/16 at 09:00; Stop 10/01/16 at 08:59 CONSTANZA HALLMAN MD Sep 07, 2016 12:16
[2016-09-07 14:00] VITALS: BP 121/58
[2016-09-07] MEDS ORDERED: ACET50TA PO (14:53)
[2016-09-07] MEDS ORDERED: WARFARIN SOD 4 MG TAB PO ONE (17:00)
[2016-09-07 20:00] VITALS: BP 117/55
[2016-09-08] MEDS: ACETAMINOPHEN 500 MG TAB PO SCH (05:13)
[2016-09-08 06:00] VITALS: BP 144/65
[2016-09-08 07:04] LABS: MEAN CORPUSCULAR HEMOGLOBIN 28.4 pg (27.0-33.0); MEAN CORPUSCULAR VOLUME 85.9 fl (80.0-96.0); RED CELL DISTRIBUTION WIDTH 14.7 % (11.5-14.5); WHITE BLOOD COUNT 8.9 K/mm3 (4.0-10.0)
[2016-09-08 07:08] LABS: INR 2.12
[2016-09-08] MEDS ORDERED: COUM2.5T11 PO (07:43)
[2016-09-08 07:52] LABS: ANION GAP 10 MEQ/L (8-16); BLOOD UREA NITROGEN 16 MG/DL (7-18); CALCIUM LEVEL 8.7 MG/DL (8.8-10.2); CARBON DIOXIDE LEVEL 24 MEQ/L (21-32); CHLORIDE LEVEL 104 MEQ/L (98-107); CREATININE FOR GFR 0.69 MG/DL (0.55-1.02); GLOMERULAR FILTRATION RATE > 60.0 (>32); GLUCOSE, FASTING 95 MG/DL (83-110); SODIUM LEVEL 138 MEQ/L (136-145)
[2016-09-08 10:00] VITALS: BP 121/57
[2016-09-08] MEDS: VALSARTAN 80 MG TAB (DIOVAN) PO SCH (10:08)
[2016-09-08 10:09] VITALS: BP 132/74
[2016-09-08] MEDS: amLODIPine 5 MG TAB PO SCH (10:09)
[2016-09-08] MEDS: SENOKOT S TAB PO SCH (10:10)
[2016-09-08] MEDS: CYANOCOBALAMIN 500 MCG TAB PO SCH (10:10)
[2016-09-08] MEDS: VITAMIN D 1,000 INTERNATIONAL UNITS TABLET PO SCH (10:11)
--- NOTE | 2016-09-08 10:24 | DS.PDOC ---
Custodian Athletic Equipment Discharge Note DISCHARGE SUMMARY DATE OF DISCHARGE: 09/08/2016 DATE OF ADMISSION: 08/31/2016 DISCHARGE DIAGNOSES 1. Advanced right hip degenerative joint disease status post left hip arthroplasty with resultant gait abnormality and dysfunctional activities of daily living (ADLs) 2. Confusion/hallucinations 3. Anemia, acute blood loss 4. Hypertension: Adequately controlled. Continue Norvasc and valsartan. Adjustments if needed. 5. Constipation 6. Malnutrition IDENTIFICATION STATEMENT: Ms. Licea is an 86-year-old woman status post right total hip arthroplasty admitted for comprehensive integrated inpatient rehabilitation. PAST MEDICAL HISTORY: 1. Hypertension. 2. Hyperlipidemia. 3. Osteoarthritis. 4. Anxiety. PAST SURGICAL HISTORY: 1. Left total knee arthroplasty 2009. 2. Bunionectomy b/l. 3. Tubal ligation, due to being Rh positive/miscarriages. 4. Left IVIS March 2016 HOSPITAL COURSE The patient underwent daily physical and occupational therapy. She was maintained on WBAT right LL. She tolerated her therapy sessions well and made progressive gains. Surgical site was monitored periodically and noted to be healing well. Follow-up appointment was arranged with Dr. Liu after discharge to include staple removal. On 09/08/2016 patient was deemed stable for discharge home with [facility]. Other issues addressed while on the rehabilitation unit are outlined as follows: 1. Confusion/hallucinations: Deemed secondary to pain medication/and anesthesia. Her pain medication was discontinued with the exception of acetaminophen. Her BuSpar was changed to on an as-needed basis which was how she was taking it at home. She does not require any BuSpar during her rehabilitation stay. Her mental status returned to baseline. 2. Pain: Pain buster d/cd 09/01/16 and pain remained adequately controlled with scheduled Tylenol and intermittent ice. 3. Anemia, acute blood loss: Hemoglobin monitored and remained relatively stable. 4. Hypertension: Adequately controlled. Continue Norvasc and valsartan. Adjustments if needed. 5. Constipation: Resolved s/p Mag citrate. Maintained on Senokot-S twice daily. Mirlax and MOM as needed. 6. Venous thromboembolism (VTE) prophylaxis: Coumadin dosed by LEIDY Brown of the orthopedic service. Maintained on sequential compression device (SCD ) and thromboembolic-deterrent (YOUSUF) hose. 7. Malnutrition: Prealbumin low for which she was started on ensure supplements. Prealbumin within low normal limits by the time of discharge. FUNCTIONAL STATUS on discharge: Patient was modified independent for ambulation and all ADLs with the exception of putting on her TEDs for which her family was able to assist her. VITAL SIGNS: Temperature 99.9F, pulse 79, respiratory rate 18, blood pressure 144/65, 96% saturation on room air. PHYSICAL EXAMINATION: GENERAL: Well-developed, well-nourished, sitting up, no acute distress. HEENT: Normocephalic, atraumatic. PERRL. Extraocular motion intact. CARDIOVASCULAR: S1, S2, regular rate. No significant left lower limb edema or calf tenderness. Mild diffuse right lower limb swelling and no calf tenderness per se. LUNGS: Clear to auscultation. No wheezing, rhonchi, or rales. ABDOMEN: Soft, nontender, nondistended. Normoactive bowel sounds throughout. MUSCULOSKELETAL: 5/5 strength in bilateral upper limbs and left lower limb in all major muscle groups, 4+/5 right hip flexors, 5/5 right knee extension and flexion, 5/5 right dorsiflexion, plantar flexion and extensor hallucis longus ( EHL). NEUROLOGICAL: Alert and oriented times three. Answers all questions appropriately. Able to follow commands without difficulty. SKIN: Right lateral hip surgical site with optifoam dressing minial serous drainage distal dressing LABORATORY DATA: 09/08/16: reviewed, see below OTHER STUDIES: X-ray of the right hip on 08/31/16, status post right arthroplasty in good position. ALLERGIES: CODEINE. MEDICATIONS: - Coumadin 2.5mg daily - Norvasc/Valsartan 5-160 mg 1 tab daily - Crestor 5 mg Monday and Monday - BuSpar 10 mg by mouth daily prn - cyanocobalamin 1000 mcg daily - vitamin D 2000 units daily - milk of magnesium 30 mL daily prn - polyethylene glycol one packet daily prn - acetaminophen 1000mg q8h prn DISCHARGE DISPOSITION: 1. The patient discharge home with family and [facility] 2. The patient discharged in stable condition 3. Discharged with [facility] to include RN, PT, OT, bath aide and lab draws. 4. Equipment: Had all recommended equipment (2WW, shower chair and commode) 5. Post discharge follow-up medical appointments: PCP, Ortho [facility]). / Vital Signs/I&O Vital Sign - Last 24 Hours 09/07/16 09/07/16 09/08/16 09/08/16 14:00 20:00 06:00 10:08 Temp 99.3 98.7 99.9 Pulse 79 70 79 Resp 18 18 18 B/P 121/58 117/55 144/65 132/74 Pulse Ox 97 96 96 O2 Delivery Room Air Room Air Room Air 09/08/16 10:09 Pulse 78 B/P 132/74 I&O- Last 24 Hours up to 6 AM 09/08/16 06:00 Intake Total 820 ml Balance 820 ml Laboratory Data CBC/BMP Laboratory Tests 09/08/16 06:40 Calcium Level 8.7 L, Red Blood Count 3.75 L, Mean Corpuscular Volume 85.9, Mean Corpuscular Hemoglobin 28.4, Mean Corpuscular Hemoglobin Concent 33.0, Red Cell Distribution Width 14.7 H Labs 48H Laboratory Tests 09/07/16 08:03: Prothromb Time International Ratio 1.74, Prothrombin Time 20.4H 09/08/16 06:40: Prothromb Time International Ratio 2.12, Prothrombin Time 23.8H, Anion Gap 10, Blood Urea Nitrogen 16, Creatinine 0.69, Sodium Level 138, Potassium Level 4.0, Chloride Level 104, Carbon Dioxide Level 24, Calcium Level 8.7L, Fasting Glucose 95, Glomerular Filtration Rate > 60.0, White Blood Count 8.9, Red Blood Count 3.75L, Hemoglobin 10.6L, Hematocrit 32.2L, Mean Corpuscular Volume 85.9, Mean Corpuscular Hemoglobin 28.4, Mean Corpuscular Hemoglobin Concent 33.0, Red Cell Distribution Width 14.7H, Platelet Count 353, Prealbumin 20.7 Medications Medications Current Medications Acetaminophen (Tylenol) 1,000 mg Q8H PO Last administered on 09/08/16 05:13; Start 08/31/16 at 22:00; Stop 09/30/16 at 21:59 Amlodipine Besylate (Norvasc) 5 mg DAILY PO Last administered on 09/08/16 10: 09; Start 09/01/16 at 09:00; Stop 10/01/16 at 08:59 Buspirone HCl (Buspar) 10 mg DAILY PO ; Start 09/01/16 at 09:00; Stop 09/01/16 at 09:00; Status DC Buspirone HCl (Buspar) 10 mg DAILY PRN PO anxiety; Start 09/01/16 at 09:00; Stop 10/01/16 at 08:59 Cyanocobalamin (Vitamin B12) 1,000 mcg DAILY PO Last administered on 09/08/16 10:10; Start 09/01/16 at 09:00; Stop 10/01/16 at 08:59 Magnesium Hydroxide (Milk Of Magnesia) 30 ml DAILYPRN PRN PO CONSTIPATION Last administered on 09/02/16 08:51; Start 08/31/16 at 15:00; Stop 09/30/16 at 14:59 Polyethylene Glycol (Miralax) 1 pkt DAILY PRN PO CONSTIPATION Last administered on 09/02/16 08:50; Start 08/31/16 at 15:00; Stop 09/30/16 at 14:59 Rosuvastatin Calcium (Crestor) 5 mg MoFr@09 PO Last administered on 09/05/16 08:18; Start 09/02/16 at 09:00; Stop 10/02/16 at 08:59 Senna/Docusate Sodium (Senokot S) 1 tab BID PO Last administered on 09/08/16 10:10; Start 08/31/16 at 21:00; Stop 09/30/16 at 20:59 Valsartan (Diovan) 160 mg QAM PO Last administered on 09/08/16 10:08; Start at 09:00; Stop 10/01/16 at 08:59 Vitamin D (Vitamin D) 2,000 units DAILY PO Last administered on 09/08/16 10:11 ; Start 09/01/16 at 09:00; Stop 10/01/16 at 08:59 Scheduled ([Amlodipine/Valsartan]) 5-160 MG PO DAILY (Reported) Buspirone HCl (Buspirone HCl) 10 Mg Tab 10 MG PO DAILY (Reported) Cyanocobalamin (Vitamin B-12) 500 Mcg Tab 1,000 MCG PO DAILY (Reported) Rosuvastatin Calcium (Crestor) 5 Mg Tab 5 MG PO 2XW (Reported) TO BE TAKEN ON MONDAY AND MONDAY Vitamin D (Vitamin D) 1,000 Unit Cap 2,000 UNIT PO DAILY (Reported) Warfarin Sod (Coumadin) 5 Mg Tab 5 MG PO 1T (Reported) Warfarin Sod (Coumadin) 2.5 Mg Tab 1 TAB PO ASDIRECTED MDD = 6 tabs Scheduled PRN Acetaminophen (Mapap) 500 Mg Tab 1,000 MG PO Q8HP PRN PRN pain Tramadol HCl (Tramadol HCl) 50 Mg Tab 50 MG PO Q4HP PRN PRN MODERATE PAIN (PS 5- 7) Allergies Coded Allergies: Codeine (Unverified Allergy, Unknown, HALLUCINATIONS, 01/01/15) CONSTANZA HALLMAN MD Sep 08, 2016 10:24
[2016-09-08] MEDS ORDERED: SENN1TAB2 PO (11:43)
== END 2016-09-08 13:15 | disposition home health service (06) | DRG 560 ==
LOC: M PM&R 15:02
PROVIDERS: ADMIT Physical Medicine & Rehabilitation; ATTEND Physical Medicine & Rehabilitation
DX: Z47.1 Aftercare following joint replacement surgery (principal); D62 Acute posthemorrhagic anemia; E46 Unspecified protein-calorie malnutrition; T40.2X5A Adverse effect of other opioids, initial encounter; Z96.641 Presence of right artificial hip joint; K59.00 Constipation, unspecified; I10 Essential (primary) hypertension; E78.5 Hyperlipidemia, unspecified; R26.9 Unspecified abnormalities of gait and mobility; M19.90 Unspecified osteoarthritis, unspecified site; F41.9 Anxiety disorder, unspecified; R11.2 Nausea with vomiting, unspecified; L40.0 Psoriasis vulgaris; R41.0 Disorientation, unspecified; Z96.652 Presence of left artificial knee joint; Z79.01 Long term (current) use of anticoagulants; Z79.899 Other long term (current) drug therapy

== ENCOUNTER → 2016-09-12 | Outpatient (REF) | payer MEDICARE ==
[~2016-09-12] MED LIST changes: +ACET50TA PO; +COUM2.5T11 PO
[2016-09-12 12:44] LABS: INR 2.12
== END ==
LOC: M SHH 11:47
PROVIDERS: ATTEND Nurse Practitioner Family
DX: Z79.01 Long term (current) use of anticoagulants (principal)

== ENCOUNTER → 2016-09-15 | Outpatient (REF) | payer MEDICARE ==
[2016-09-15 13:30] LABS: INR 2.7
== END ==
LOC: M SHH 12:57
PROVIDERS: ATTEND Nurse Practitioner Family
DX: Z51.81 Encounter for therapeutic drug level monitoring (principal); Z79.01 Long term (current) use of anticoagulants

== ENCOUNTER → 2016-09-19 | Outpatient (REF) | payer MEDICARE ==
[2016-09-19 14:13] LABS: INR 1.97
== END ==
LOC: M SHH 13:31 → M LAB REF 13:31
PROVIDERS: ATTEND Nurse Practitioner Family
DX: Z79.01 Long term (current) use of anticoagulants (principal)

== ENCOUNTER → 2016-09-22 | Outpatient (REF) | payer MEDICARE ==
[2016-09-22 13:02] LABS: INR 1.35
== END ==
LOC: M LAB REF 11:59
PROVIDERS: ATTEND Nurse Practitioner Family
DX: Z79.01 Long term (current) use of anticoagulants (principal)

== ENCOUNTER → 2016-09-26 | Outpatient (REF) | payer MEDICARE ==
[2016-09-26 14:04] LABS: INR 1.44
== END ==
LOC: M SHH 13:34
PROVIDERS: ATTEND Nurse Practitioner Family
DX: Z79.01 Long term (current) use of anticoagulants (principal)

== ENCOUNTER → 2016-09-29 | Outpatient (CLI) | payer MEDICARE ==
[2016-09-29 18:39] LABS: INR 1.28
== END ==
LOC: M LRY 11:44
PROVIDERS: ATTEND Nurse Practitioner Family
DX: Z51.81 Encounter for therapeutic drug level monitoring (principal); Z79.01 Long term (current) use of anticoagulants

== ENCOUNTER → 2017-01-18 | Outpatient (REF) | payer MEDICARE ==
[2017-01-18 18:15] LABS: MEAN CORPUSCULAR HEMOGLOBIN 27.9 pg (27.0-33.0); MEAN CORPUSCULAR HGB CONC 32.7 g/dl (32.0-36.5); MEAN CORPUSCULAR VOLUME 85.4 fl (80.0-96.0); RED CELL DISTRIBUTION WIDTH 14.2 % (11.5-14.5); WHITE BLOOD COUNT 6.2 K/mm3 (4.0-10.0)
[2017-01-18 18:30] LABS: ALBUMIN 3.7 GM/DL (3.2-5.2); ALBUMIN/GLOBULIN RATIO 1.32 (1.00-1.93); ALKALINE PHOSPHATASE 96 U/L (45-117); ALT/SGPT 22 U/L (12-78); ANION GAP 6 MEQ/L (8-16); AST/SGOT 22 U/L (15-37); BILIRUBIN,TOTAL 0.3 MG/DL (0.2-1.0); BLOOD UREA NITROGEN 18 MG/DL (7-18); CALCIUM LEVEL 9.1 MG/DL (8.8-10.2); CARBON DIOXIDE LEVEL 29 MEQ/L (21-32); CHLORIDE LEVEL 106 MEQ/L (98-107); CREATININE FOR GFR 0.82 MG/DL (0.55-1.02); GLOMERULAR FILTRATION RATE > 60.0 (>32); GLUCOSE, FASTING 88 MG/DL (83-110); POTASSIUM SERUM 4.9 MEQ/L (3.5-5.1); SODIUM LEVEL 141 MEQ/L (136-145); TOTAL PROTEIN 6.5 GM/DL (6.4-8.2)
== END ==
LOC: M SFHCLERA 14:35
PROVIDERS: ATTEND Internal Medicine
DX: M16.11 Unilateral primary osteoarthritis, right hip (principal); I10 Essential (primary) hypertension

== ENCOUNTER → 2017-07-28 | Outpatient (REF) | payer MEDICARE ==
[~2017-07-28] MED LIST changes: -COUM2.5T11 PO; +COUM2.5T17 PO; -VITA100037 PO; +VITA100067 PO
[2017-07-28 12:19] LABS: ALBUMIN 3.7 GM/DL (3.2-5.2); ALBUMIN/GLOBULIN RATIO 1.23 (1.00-1.93); ALKALINE PHOSPHATASE 82 U/L (45-117); ALT/SGPT 22 U/L (12-78); ANION GAP 8 MEQ/L (8-16); AST/SGOT 18 U/L (7-37); BILIRUBIN,TOTAL 0.6 MG/DL (0.2-1.0); BLOOD UREA NITROGEN 10 MG/DL (7-18); CALCIUM LEVEL 8.7 MG/DL (8.8-10.2); CARBON DIOXIDE LEVEL 26 MEQ/L (21-32); CHLORIDE LEVEL 106 MEQ/L (98-107); CHOLESTEROL LEVEL 168 MG/DL (<200); CREATININE FOR GFR 0.84 MG/DL (0.55-1.02); GLOMERULAR FILTRATION RATE > 60.0 (>32); GLUCOSE, FASTING 91 MG/DL (83-110); MAGNESIUM LEVEL 2.3 MG/DL (1.8-2.4); POTASSIUM SERUM 4.3 MEQ/L (3.5-5.1); SODIUM LEVEL 140 MEQ/L (136-145); TOTAL PROTEIN 6.7 GM/DL (6.4-8.2); TRIGLYCERIDES LEVEL 87 MG/DL (<150)
== END ==
LOC: M SFHCLERA 08:28
PROVIDERS: ATTEND Internal Medicine
DX: I10 Essential (primary) hypertension (principal); E78.00 Pure hypercholesterolemia, unspecified